=== PATIENT | male | born 1950 | race Caucasian/White ===

== ENCOUNTER 2017-12-24 11:23 | Emergency (ER) | payer MEDICARE, OTHER ==
[2017-12-24 11:32] VITALS: BP 132/70
[2017-12-24] MEDS ORDERED: BUFFERED LIDOCAINE 10 ML SYRINGE SUBQ STA (12:15)
--- NOTE | 2017-12-24 12:16 | ED Physician Documentation ---
PD HPI UPPER EXT INJURY - Stated complaint Stated Complaint: L MIDDLE FINGER VS TABLE SAW - Chief complaint Chief Complaint: Laceration - History obtained from History obtained from: Patient - History of Present Illness Location: Left (Right-handed gentleman who is up-to-date on tetanus was working on a fence post at home with a table saw and cut his left middle finger just prior to arrival. No other injuries. Pain is modest.) Review of Systems Constitutional: reports: Reviewed and negative Nose: reports: Reviewed and negative Throat: reports: Reviewed and negative PD PAST MEDICAL HISTORY - Past Medical History Cardiovascular: Congestive heart failure, High cholesterol Neuro: Head injury, Seizure disorder Endocrine/Autoimmune: Type 2 diabetes GI: Hepatitis Musculoskeletal: Gout, Other Other Past Medical History: Auto immune disease - Past Surgical History General: Colonoscopy, EGD Ortho: Knee replacement, Rotator cuff repair, Carpal Tunnel surgery Cardiovascular: Pacemaker HEENT: Cataracts - Present Medications Home Medications: Ambulatory Orders Medication Instructions Recorded Confirmed Cephalexin [Keflex] 500 mg PO QID #28 capsule 12/24/17 Oxycodone HCl/Acetaminophen 1 - 2 tab PO Q4H PRN #10 tablet 12/24/17 [Percocet 5-325 mg Tablet] - Allergies Allergies/Adverse Reactions: Allergies Allergy/AdvReac Type Severity Reaction Status Date / Time No Known Drug Allergies Allergy Verified 12/24/17 11:29 - Social History Does the pt smoke?: No Smoking Status: Never smoker Does the pt drink ETOH?: No Does the pt have substance abuse?: No PD ED PE NORMAL - Vitals Vital signs reviewed: Yes - General General: Alert and oriented X 3, No acute distress - Extremities Extremities: Other (Left middle finger: On the ulnar side of the tip there is 1 cm laceration into the pulp with a little bit of tissue loss but not much. There is a little bit of nailbed injury and nail injury.) - Neuro Neuro: Alert and oriented X 3, Normal speech Results - Vitals Vitals: Vital Signs - 24 hr 12/24/17 11:25 Temperature 37.1 C Heart Rate 67 Respiratory 16 Rate Blood Pressure 132/70 H O2 Saturation 98 Oxygen O2 Source Room air - Rads (name of study) L 3rd finger Radiology: EMP read contemporaneously (There is a laceration of the tip of the third digit with underlying tuft defect and evidence of an inflammatory arthritis as well.) Procedures - Laceration (location) Left third finger Length in cm: 1.5 Wound type: Linear, Irregular Neurovascular status: Sensory intact, Motor intact Tendon involvement: Tendon intact Anesthesia: OTH (Digital block with buffered lidocaine) Wound Preparation: Other (Part of the nail had to be debrided and there was some undermining done.) Skin layer closure: Other (It was approximated as well as it could be with 4-0 nylon interrupted. There were some open areas because of the tissue defect.) Other: Tetanus UTD Complexity: Simple Departure - Departure Disposition: 01 Home, Self Care Clinical Impression: Laceration Open finger fracture Qualifiers: Encounter type: initial encounter Finger: middle finger Phalanx: distal Fracture alignment: nondisplaced Laterality: left Qualified Code(s): S62.663B - Nondisplaced fracture of distal phalanx of left middle finger, initial encounter for open fracture Condition: Good Record reviewed to determine appropriate education?: Yes Instructions: ED Fx Finger Open Prescriptions: Cephalexin [Keflex] 500 mg PO QID #28 capsule Oxycodone HCl/Acetaminophen [Percocet 5-325 mg Tablet] 1 - 2 tab PO Q4H PRN #10 tablet PRN Reason: Pain Comments: Follow-up with your primary care physician in a week for wound check and in 2 weeks for suture removal, return for increased pain, swelling, drainage, redness. Your blood pressure was elevated today on check into the emergency department. This does not mean that you have hypertension, it is a common phenomenon to come to the emergency department and have elevated blood pressure. I recommend that you see your primary care physician within the week to have it rechecked when you are feeling better. Do not drink or drive while taking narcotic pain medication. Note that many narcotic pain relievers also contain Tylenol/acetaminophen. Please ensure that your total dose of acetaminophen from all sources does not exceed 3 g (3000 mg) per day. You may get constipated while on this medication. Take a stool softener such as Colace twice a day while you are on it. Also add an [id number] laxative such as senna or MiraLAX on any day that you do not have a bowel movement. If you received a narcotic pain medication or sedative while in the emergency department, do not drive for the next 24 hours.
--- NOTE | 2017-12-24 12:49 | XRAY Report ---
EXAM: LEFT THIRD DIGIT RADIOGRAPHY EXAM DATE: 12/24/2017 12:32 PM. CLINICAL HISTORY: Finger inj. COMPARISON: None. TECHNIQUE: 3 views. FINDINGS: Bones: There is a linear bony defect through the tuft of the third digit. There are 2 subcortical cys ts in the scaphoid which are thought to be degenerative. Joints: There is a periarticular erosion at the base of the proximal third phalanx. The ulnar styloid is unremarkable. Soft Tissues: Soft tissue irregularity at the tip of the third digit. IMPRESSION: 1. Laceration of the tip of the third digit with underlying bony defect of the tuft. 2. Periarticular erosion at the base of the proximal third phalanx which can be seen in the setting o f inflammatory arthritis such as rheumatoid arthritis. [facility] Referring Provider Line: [phone] SITE ID: [id number]
[2017-12-24] MEDS ORDERED: cephALEXin 250 MG CAPSULE PO STA (12:50)
== END 2017-12-24 13:21 | disposition home or self-care (01) ==
LOC: ED 11:23
DX: S62.663B Nondisplaced fracture of distal phalanx of left middle finger, initial encounter for open fracture (principal); E11.9 Type 2 diabetes mellitus without complications; R03.0 Elevated blood-pressure reading, without diagnosis of hypertension; W31.2XXA Contact with powered woodworking and forming machines, initial encounter; Y92.009 Unspecified place in unspecified non-institutional (private) residence as the place of occurrence of the external cause
CPT/HCPCS: 12001; 73140; 99283; A9270

== ENCOUNTER 2018-04-29 03:46 | Inpatient (IN) | payer MEDICARE, OTHER ==
[2018-04-29 04:15] LABS: BASOPHILS # (AUTO) 0.1 10^3/uL (0.0-0.1); EOSINOPHILS # (AUTO) 0.1 10^3/uL (0.0-0.7); LYMPHOCYTES # (AUTO) 2.1 10^3/uL (1.5-3.5); MEAN CORPUSCULAR VOLUME 81.1 fL (80.0-94.0); MONOCYTES # (AUTO) 1.5 10^3/uL (0.0-1.0); MONOCYTES % (AUTO) 19.9 %; NEUTROPHILS # (AUTO) 3.8 10^3/uL (1.5-6.6)
[2018-04-29 04:16] LABS: BILIRUBIN,URINE NEGATIVE (NEGATIVE); GLUCOSE, URINE (UA) NEGATIVE (NEGATIVE); KETONES,URINE (UA) NEGATIVE (NEGATIVE); LEUKOCYTE ESTERASE, URINE TRACE (NEGATIVE); NITRITE,URINE NEGATIVE (NEGATIVE); OCCULT BLOOD,URINE TRACE-LYSE (NEGATIVE); PH,URINE 5.5 PH (5.0-7.5); PROTEIN,URINE 100 mg/dL (NEGATIVE); UROBILINOGEN,URINE 0.2 (NORMAL) E.U./dL (NORMAL)
[2018-04-29 04:17] LABS: BASOPHILS % (AUTO) 0.7 %; EOSINOPHILS % (AUTO) 1.3 %; LYMPHOCYTES % (AUTO) 28.2 %; MEAN CORPUSCULAR HEMOGLOBIN 27.6 pg (27.0-31.0); MEAN CORPUSCULAR HGB CONC 34.1 g/dL (32.0-36.0); MEAN PLATELET VOLUME 7.3 fL (7.4-11.4); NEUTROPHILS % (AUTO) 49.9 %; PLT - PLATELET COUNT 313 10^3/uL (130-450); RED BLOOD COUNT 4.33 10^6/uL (4.70-6.10); RED CELL DISTRIBUTION WIDTH 15.3 % (12.0-15.0); WHITE BLOOD COUNT 7.5 x10^3/uL (4.8-10.8)
[2018-04-29 04:17] LABS: CLARITY,URINE CLEAR (CLEAR)
[2018-04-29 04:22] LABS: RBC,URINE 0-5 /HPF (0-5)
[2018-04-29 04:23] LABS: BACTERIA,URINE Rare /HPF (None Seen); MUCUS,URINE Marked Strands; SQUAMOUS EPITHELIAL CELL,UR FEW Squamous (<= Few)
[2018-04-29 04:28] LABS: ALBUMIN 3.5 g/dL (3.2-5.5); ALBUMIN/GLOBULIN RATIO 0.7 (1.0-2.2); BILIRUBIN,TOTAL 0.4 mg/dL (0.2-1.0); CALCIUM 8.8 mg/dL (8.5-10.3); CREATININE 1.1 mg/dL (0.6-1.2); TOTAL PROTEIN 8.3 g/dL (6.7-8.2)
[2018-04-29] MEDS ORDERED: KETOROLAC 60 MG/2 ML VIAL IVP STA (04:28)
[2018-04-29] MEDS ORDERED: ONDANSETRON 4 MG/2 ML VIAL IVP STA ×2 (04:28→05:32)
[2018-04-29] MEDS ORDERED: SODIUM CHLORIDE 0.9% 1,000 ML IV ONE (04:28)
[2018-04-29] MEDS ORDERED: IOPAMIDOL-300 100 ML VIAL ONE (04:33)
--- NOTE | 2018-04-29 04:41 | ED Physician Documentation ---
PD HPI ABD PAIN - Stated complaint Stated Complaint: ABD PX - Chief complaint Chief Complaint: Abd Pain - History obtained from History obtained from: Patient - Additional information Additional information: 67-year-old male presents the emergency department with 3 weeks of increasing lower abdominal pain. The patient has a history of diverticulitis and was started on antibiotics empirically by his primary care. The patient reports lower abdominal pain mostly suprapubic but is also experienced left-sided abdominal pain. The patient denies fevers or chills. The patient reports dysuria. The patient denies any vomiting. The patient denies blood in the stools. Symptoms are described as moderate. No specific triggering factors. No relieving factors. No other associated symptoms Review of Systems Constitutional: reports: Fatigue. denies: Fever Eyes: denies: Discharge Ears: denies: Ear pain Nose: denies: Congestion Throat: denies: Sore throat Cardiac: denies: Chest pain / pressure Respiratory: denies: Dyspnea GI: reports: Abdominal Pain : denies: Dysuria Skin: denies: Rash Musculoskeletal: denies: Neck pain Neurologic: denies: Generalized weakness Psychiatric: denies: Hallucinations Immunocompromised: reports: Immunocompromised PD PAST MEDICAL HISTORY - Past Medical History Cardiovascular: Congestive heart failure, High cholesterol Neuro: Head injury, Seizure disorder Endocrine/Autoimmune: Type 2 diabetes GI: Hepatitis Musculoskeletal: Gout, Other - Past Surgical History General: Colonoscopy, EGD Ortho: Knee replacement, Rotator cuff repair, Carpal Tunnel surgery Cardiovascular: Pacemaker, AICD HEENT: Cataracts - Present Medications Home Medications: Ambulatory Orders Medication Instructions Recorded Confirmed Aspirin 81 mg PO 04/29/18 Carvedilol [Coreg] 04/29/18 Ciprofloxacin HCl [Cipro] 500 mg PO 04/29/18 Lisinopril 20 mg PO 04/29/18 Methotrexate 2.5 mg PO DAILY 04/29/18 Metronidazole [Flagyl] 500 mg PO 04/29/18 Rosuvastatin Calcium 10 mg PO 04/29/18 04/29/18 Sitagliptin Phosphate [Januvia] 50 mg PO 04/29/18 metFORMIN [Glucophage] 500 mg PO ONCE 04/29/18 - Allergies Allergies/Adverse Reactions: Allergies Allergy/AdvReac Type Severity Reaction Status Date / Time No Known Drug Allergies Allergy Verified 04/29/18 03:57 - Social History Does the pt smoke?: No Smoking Status: Never smoker Does the pt drink ETOH?: No Does the pt have substance abuse?: No - Immunizations Immunizations are current?: Yes PD ED PE NORMAL - General General: Alert and oriented X 3. No: No acute distress (The patient appears quite uncomfortable) - HEENT HEENT: Atraumatic, PERRL, EOMI, Ears normal - Cardiac Cardiac: RRR, Strong equal pulses - Respiratory Respiratory: No respiratory distress, Clear bilaterally - Abdomen Abdomen: Soft, Non distended. No: Non tender (The patient has tenderness to palpation in the lower abdomen, there is no rebound or peritoneal signs) - Back Back: No CVA TTP - Derm Derm: Normal color, No rash - Extremities Extremities: No deformity, No edema - Neuro Neuro: Alert and oriented X 3, Normal speech - Psych Psych: Normal affect Results - Vitals Vitals: Vital Signs - 24 hr 04/29/18 04/29/18 03:52 05:56 Temperature 36.9 C Heart Rate 78 68 Respiratory 18 18 Rate Blood Pressure 148/90 H 123/79 O2 Saturation 99 100 Oxygen O2 Source Room air - Labs Labs: Laboratory Tests 04/29/18 04/29/18 04/29/18 04:00 04:05 04:05 WBC 7.5 RBC 4.33 L Hgb 12.0 L Hct 35.1 L MCV 81.1 MCH 27.6 MCHC 34.1 RDW 15.3 H Plt Count 313 MPV 7.3 L Neut # (Auto) 3.8 Lymph # (Auto) 2.1 [place] # (Auto) 1.5 H Eos # (Auto) 0.1 Baso # (Auto) 0.1 Absolute Nucleated RBC 0.00 Nucleated RBC % 0.0 Sodium 134 L Potassium 4.0 Chloride 104 Carbon Dioxide 22 Anion Gap 8.0 BUN 20 Creatinine 1.1 Estimated GFR (MDRD) 67 L Glucose 181 H Calcium 8.8 Total Bilirubin 0.4 AST 16 ALT 14 Alkaline Phosphatase 70 Total Protein 8.3 H Albumin 3.5 Globulin 4.8 H Albumin/Globulin Ratio 0.7 L Lipase 27 Urine Color YELLOW Urine Clarity CLEAR Urine pH 5.5 Ur Specific Lloyd >=1.030 H Urine Protein 100 H Urine Glucose (UA) NEGATIVE Urine Ketones NEGATIVE Urine Occult Blood TRACE-LYSE Urine Nitrite NEGATIVE Urine Bilirubin NEGATIVE Urine Urobilinogen 0.2 (NORMAL) Ur Leukocyte Esterase TRACE H Urine RBC 0-5 Urine WBC 4-5 Ur Squamous Epith Cells FEW Squamous Urine Bacteria Rare Urine Mucus Marked Strands Ur Microscopic Review INDICATED Urine Culture Comments INDICATED - Rads (name of study) CT abd/pelvis Radiology: Final report received (1. Sigmoid diverticulitis with developing abscess or fistula extending from the sigmoid colon to the dome of the urinary bladder, measuring about 3.9 x 1.8 cm. ) PD MEDICAL DECISION MAKING - ED course ED course: The case was discussed with the on-call general surgeon Dr. Garcia who will consult on the patient The case was discussed with the hospitalist Dr. Aguila who accepts the patient onto her service The findings and plan were discussed with the patient who understands and agrees to plan - Sepsis Event Vital Signs: Vital Signs - 24 hr 04/29/18 04/29/18 03:52 05:56 Temperature 36.9 C Heart Rate 78 68 Respiratory 18 18 Rate Blood Pressure 148/90 H 123/79 O2 Saturation 99 100 Oxygen O2 Source Room air Departure - Departure Disposition: 66 [facility] DC/Xfer Clinical Impression: Diverticulitis, Failure of outpatient treatment Condition: Fair
[2018-04-29] MEDS ORDERED: IOPAMIDOL-300 100 ML VIAL IVP ONE (04:57)
[2018-04-29] MEDS ORDERED: PIPERACILLIN/TAZOBACTAM 4.5 GM in SODIUM CHLORIDE 0.9% MINIBAG 100 ML IV STA (05:32)
--- NOTE | 2018-04-29 05:33 | CT Report ---
Reason: lower pain Procedure Date: 04/29/2018 Accession Number: [id number] / [id number] Procedure: CT - Abdomen/Pelvis W/ CPT Code: FULL RESULT: EXAM: CT ABDOMEN AND PELVIS EXAM DATE: 04/29/2018 05:12 AM. CLINICAL HISTORY: Lower abdominal pain. COMPARISONS: None. TECHNIQUE: Routine helical CT imaging was performed through the abdomen and pelvis. IV contrast: ISOVUE 300 100mL. Enteric contrast: No. Reconstructions: Coronal and sagittal. In accordance with CT protocol optimization, one or more of the following dose reduction techniques were utilized for this exam: automated exposure control, adjustment of mA and/or KV based on patient size, or use of iterative reconstructive technique. FINDINGS: Lung Bases: Unremarkable. Liver: Fatty infiltration. Gallbladder/Bile Ducts: Unremarkable. Spleen: Normal. Pancreas: Normal. Adrenal Glands: Normal. Kidneys: Small right renal cyst. No masses or hydronephrosis. Peritoneal Cavity/Bowel: Moderate stool in the colon, right greater than left. Colonic diverticula. Sigmoid diverticulitis. Diverticular abscess or fistula measuring about 3.9 x 1.8 cm extending to the left side of the bladder dome. Bladder wall thickening. No bowel obstruction seen. No lymphadenopathy. Appendix appears normal. Pelvic Organs: As noted above, urinary bladder wall thickening secondary to contiguous diverticular abscess. Vasculature: Moderate atherosclerosis. No aortic aneurysm. Bones: Degenerative changes in the spine. Spinal stenosis. Degenerative joint disease in the hips. Other: Small umbilical hernia containing fat. IMPRESSION: 1. Sigmoid diverticulitis with developing abscess or fistula extending from the sigmoid colon to the dome of the urinary bladder, measuring about 3.9 x 1.8 cm. [facility] The above findings were discussed with Torrey Albright by Dr. Davonte Morales at 05:29 Hrs on 04/29/18.
[2018-04-29] MEDS ORDERED: HYDROmorphone 1 MG/ML CARPUJECT IVP STA (05:39)
[2018-04-29] MEDS ORDERED: oxyCODONE 5 MG TABLET PO PRN (06:03)
[2018-04-29] MEDS ORDERED: ACETAMINOPHEN 325 MG TABLET PO PRN (06:03)
[2018-04-29] MEDS ORDERED: HYDROmorphone 1 MG/ML CARPUJECT IVP PRN (06:03)
[2018-04-29] MEDS ORDERED: ONDANSETRON ODT 4 MG TABLET TL PRN (06:03)
[2018-04-29] MEDS ORDERED: ONDANSETRON 4 MG/2 ML VIAL IVP PRN (06:03)
[2018-04-29] MEDS: PIPERACILLIN/TAZOBACTAM 3.375 GM in SODIUM CHLORIDE 0.9% MINIBAG 100 ML IV SCH ×3 (06:51→18:52)
[2018-04-29] MEDS ORDERED: SODIUM CHLORIDE 0.9% 1,000 ML IV SCH ×2 (07:00→11:54)
[2018-04-29] MEDS: ENOXAPARIN 40 MG/0.4 ML SYRINGE SUBQ SCH (08:47)
[2018-04-29] MEDS: SODIUM CHLORIDE FLUSH 0.9% 10 ML SYRINGE IVP SCH ×2 (09:06→16:58)
--- NOTE | 2018-04-29 09:22 | HISTORY & PHYSICAL EXAMINATION ---
Chief Complaint - Chief Complaint Chief Complaint: lower quandrant abdominal pain History of Present Illness - History of Present Illness HPI Comment/Other: Mr. Moran is 67-yrs-old male with a PMH significance for DM2, CHF, HDL, hx of Seizure, Hepatitis, surgical hx of pacemaker and AICD, who present ER complaints of lower quadrant abdominal pain. Pt report he became lower abdominal quadrant pain three weeks ago, never went away. In This week Tuesday, he became severe lower quadrant pain with nausea and vomiting. In Tuesday he went to visit his PCP. His PCP started antibiotics to him on cipro/metronidazoleto. He did take medication but the symptoms did not became better, even worsening per pt reports. He also report chill without fever at home. He has a hx of diverticulitis approximately 6 yrs ago. Pt report he had urinary burning sensation as well. He denies chest pain, shortness of breath, cough, headache, vision change. abd/pelvic CT scan in ER showed acute sigmoid diverticulitis with a pericolonic abscess measuring 1.7 x 3.9 cm interposed between the sigmoid colon and the dome of the urinary bladder. WBC is in the normal arrange. Pt is afebrile and hemodynamic stable in ER. Surgeon was consulted. History - Past Medical History Cardiovascular: reports: Congestive heart failure, High cholesterol Respiratory: reports: None Neuro: reports: Head injury, Seizure disorder Endocrine/Autoimmune: reports: Type 2 diabetes GI: reports: Hepatitis : reports: None HEENT: reports: None Musculoskeletal: reports: Gout, Other Derm: reports: None - Past Surgical History General: reports: Colonoscopy, EGD Ortho: reports: Knee replacement, Rotator cuff repair, Carpal Tunnel surgery Cardiovascular: reports: Pacemaker, AICD HEENT: reports: Cataracts Meds/Allgy - Home Medications Home Medications: Ambulatory Orders Medication Instructions Recorded Confirmed Aspirin 81 mg PO 04/29/18 Carvedilol [Coreg] 04/29/18 Ciprofloxacin HCl [Cipro] 500 mg PO 04/29/18 Lisinopril 20 mg PO 04/29/18 Methotrexate 2.5 mg PO DAILY 04/29/18 Metronidazole [Flagyl] 500 mg PO 04/29/18 Rosuvastatin Calcium 10 mg PO 04/29/18 04/29/18 Sitagliptin Phosphate [Januvia] 50 mg PO 04/29/18 metFORMIN [Glucophage] 500 mg PO ONCE 04/29/18 - Allergies Allergies/Adverse Reactions: Allergies Allergy/AdvReac Type Severity Reaction Status Date / Time No Known Drug Allergies Allergy Verified 04/29/18 03:57 Review of Systems - Constitutional Constitutional: reports: Chills. denies: Fatigue, Fever, Malaise, Weakness, Poor appetite, Diaphoresis, Night sweats - Eyes Eyes: denies: Pain, Irritation, Amaurosis, Blurred vision, Spots in vision, Field loss, Vision loss, Dipolpia - Ears, Nose & Throat Ears, Nose & Throat: denies: Ear pain, Hearing loss, Hearing aids, Tinnitus, Vertigo, Nasal pain, Nasal discharge, Nosebleeds, Nasal obstruction, Nasal congestion, Postnasal drainage, Dentures, Hoarseness, Mouth lesions, Bleeding gums - Cardiovascular Cariovascular: denies: Irregular heart rate, Palpitations, Chest pain, Edema, Lightheadedness, Syncope, Exertional dyspnea, Decr. exercise tolerance - Respiratory Respiratory: denies: Cough, Sputum production, Wheezing, Snoring, Hemoptysis, Orthopnea, SOB at rest, SOB with exertion - Gastrointestinal Gastrointestinal: reports: Abdominal pain, Nausea, Vomiting. denies: Abdominal distention, Constipation, Diarrhea, Change in bowel habits, Rectal bleeding, Black stools, Bloody stools, Bile emesis, Gualberto blood emesis, Coffee grounds emesis, Reflux/heartburn, Bloating, Poor appetite - Genitourinary Genitourinary: reports: Dysuria. denies: Frequency, Urgency, Hematuria, Incontinence, Flank pain, Nocturia, Urethral discharge - Musculoskeletal Musculoskeletal: denies: Muscle pain, Back pain, Muscle aches, Stiffness, Limited range of motion, Muscle weakness, Gout, Joint pain - Integumentary Integumentary: denies: Rash, Pruritis, Lesions, Dryness, Lumps, Acne, Pigment changes, Nail changes - Neurological Neurological: denies: General weakness, Focal weakness, Headache, Dizziness, Numbness, Memory problems, Pre-existing deficit, Abnormal gait, Seizures, Incoo rdination, Slurred speech - Psychiatric Psychiatric: denies: Depression, Anxiety, Suicidal, Delusions, Hallucinations, Homicidal - Endocrine Endocrine: denies: Polyuria, Polydypsia, Polyphagia, Intolerance to cold - Hematologic/Lymphatic Hematologic/Lymphatic: denies: Anemia, Bruising, Petechiae, Blood clots, Lymphadenopathy, Bleeding tendencies Exam - Vital Signs Reviewed Vital Signs: Yes Vital Signs: Vital Signs x48h Temp Pulse Pulse Resp BP BP Pulse Ox 04/29/18 07:29 36.7 C 62 19 132/83 H 96 04/29/18 06:46 36.5 C 60 16 128/67 97 04/29/18 05:56 68 18 123/79 100 04/29/18 03:52 36.9 C 78 18 148/90 H 99 - Physical Exam General Appearance: positive: No acute distress, Alert. negative: Lethargic Eyes Bilateral: positive: Normal inspection, PERRL, No lid inflammation, Conjunctivae nml ENT: positive: ENT inspection nml, Pharynx nml, No signs of dehydration. negative: Purulent nasal drainage, Pharyngeal erythema, Oral lesions Neck: positive: Nml inspection, Thyroid nml, No JVD, Trachea midline. negative: Thyromegaly, Lymphadenopathy (R), Lymphadenopathy (L), Stiff neck, Swelling/bruising, Tracheal deviation Respiratory: positive: Chest non-tender, No respiratory distress, Breath sounds nml. negative: Wheezes, Rales, Rhonchi Cardiovascular: positive: Regular rate & rhythm, No murmur, No gallop. negative: Irregularly irregular, Extrasystoles, Tachycardia, Bradycardia, JVD present, Systolic murmur, Diastolic murmur Peripheral Pulses: positive: 2+ Abdomen: positive: Non-tender, No organomegaly, Nml bowel sounds, No distention. negative: Tenderness, Guarding, Rebound Back: positive: Nml inspection. negative: CVA tenderness (R), CVA tenderness (L) Skin: positive: Color nml, No rash, Warm, Dry. negative: Cyanosis, Diaphoresis, Pallor Extremities: positive: Non-tender, Full ROM, Nml appearance. negative: Calf tenderness, Joint swelling, Jerome's sign/cords Neurologic/Psychiatric: positive: Oriented x3, Motor nml, Sensation nml, Mood/affect nml. negative: Weakness, Sensory loss, Facial droop, Slurred/abnml speech, Depressed mood/affect Conclusion/Plan - Problem List (1) Diverticulitis Conclusion/Plan: CT of abdomen reveals diverticulitis with abscess. consult with surgeon, follow up Zosyn blood culture, follow up gently IVF (2) DM2 (diabetes mellitus, type 2) Conclusion/Plan: hold metformin check A1C slide scale, ACHS hypoglycemia protocol (3) CHF (congestive heart failure) Conclusion/Plan: pt has pacemaker and AICD. pt denies any chest pain, SOB, cardiac distress. will check ECHO, have EKG on tele, vital monitor resume home Coreg, Lisinopril, statin, Aspirin (4) DVT prophylaxis Conclusion/Plan: SCD and Lovenox (5) Full code status Conclusion/Plan: full code - Lab Results Fish Bones: 04/29/18 04:05 04/29/18 04:05 Core Measures - Anticipated LOS I expect patient to be DC'd or transferred within 96 hours.: Yes - DVT/VTE - Prophylaxis VTE/DVT Device ordered at admit?: Yes VTE/DVT Prophylaxis med ordered at admit?: Yes
[2018-04-29] MEDS: POLYETHYLENE GLYCOL 3350 17 GM PACKET PO SCH (10:28)
[2018-04-29 10:40] LABS: HB2 TOTAL 13.2 g/dL; HEMOGLOBIN A1C 0.53 g/dL; HEMOGLOBIN A1C % 5.8 % (4.6-6.2)
--- NOTE | 2018-04-29 10:50 | CONSULTATION NOTE ---
Referring Provider Name of Referring Provider:: Dr. Maria Consult Date: 04/29/18 Chief Complaint - Chief Complaint Chief Complaint: abd pain History of Present Illness - Admitted From Admitted From:: ER - History Obtained From Records Reviewed: yes History obtained from: pt and records Exam Limitations: none - History of Present Illness HPI Comment/Other: 67 yo male with a 3 week hx of LLQ and suprapubic pain, described as a constant dull aching pain that is exacerbated when he needs to move his bowels or urinate. There has been intermittent chills but no fever, no change in bowel habits which are passing nl appearing stools every 1-2 days. He has noted increase in urinary frequency and dysuria but no hematuria or pneumaturia. No melena or BRBPR. He reports a high pain tolerance so he didn't seek medical attention until 5 days ago when he saw his PCP who suspected diverticulitis and started him on cipro/metronidazole; he noted some improvement over the next several days only to note worsening sx thereafter culminating in an ER visit last night and admission. He noted a single episode of N/V/D after taking MOM 5 days ago and none since. No recent wt changes. He has a hx of diverticulitis diagnosed with a CT scan in [place], [place] approximately 6 yrs ago and treated as an outpt with resolution. Neg FH GI tumors, although both parents suffered from diverticulitis. He has a personal hx of colon polyps and his last colon was approximatelyt 2 yrs ago where 3 polyps were removed and 5 yr f/u rec. No prior abdominal surgery. He was evaluated in the ER with an abd/pelvic CT scan which showed changes c/w acute sigmoid diverticulitis with a pericolonic abscess measuring 1.7 x 3.9 cm interposed between the sigmoid colon and the dome of the urinary bladder. He was admitted for further evaluation and treatment. He reports that he feels better today with decreased discomfort, no N/V; is hungry. 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, currently in remission) GI: reports: Colon polyps (3 polyps removed at colonsocopy approx 2 yrs ago.), Hepatitis (thought to be A while in [place]) : reports: Nocturia, Frequency HEENT: reports: None Psych: reports: None Musculoskeletal: reports: Gout, Other Derm: reports: None MRSA Hx?: No - Past Surgical History General: reports: Colonoscopy, EGD Ortho: reports: Knee replacement, Rotator cuff repair, Carpal Tunnel surgery Cardiovascular: reports: Pacemaker, AICD HEENT: reports: Cataracts - Family & Social History Family History Comment/Other: neg for GI tumors; pos for diverticular disease in both parents Living arrangement: At home Living Situation: With spouse/s.o. - Substance History Use: Uses substance without health or social issues: NONE Abuse: Recurrent use of substance despite neg consequences: NONE Dependence: Experiences withdrawal or developed tolerances: NONE Meds/Allgy - Home Medications Home Medications: Ambulatory Orders Medication Instructions Recorded Confirmed Aspirin 81 mg PO 04/29/18 Carvedilol [Coreg] 04/29/18 Ciprofloxacin HCl [Cipro] 500 mg PO 04/29/18 Lisinopril 20 mg PO 04/29/18 Methotrexate 2.5 mg PO DAILY 04/29/18 Metronidazole [Flagyl] 500 mg PO 04/29/18 Rosuvastatin Calcium 10 mg PO 04/29/18 04/29/18 Sitagliptin Phosphate [Januvia] 50 mg PO 04/29/18 metFORMIN [Glucophage] 500 mg PO ONCE 04/29/18 - Allergies Allergies/Adverse Reactions: Allergies Allergy/AdvReac Type Severity Reaction Status Date / Time No Known Drug Allergies Allergy Verified 04/29/18 03:57 Review of Systems - Gastrointestinal Gastrointestinal: reports: Abdominal pain, Change in bowel habits (pain with bms). denies: Abdominal distention, Constipation, Diarrhea, Rectal bleeding, Black stools, Bloody stools, Nausea, Vomiting, Gualberto blood emesis, Coffee grounds emesis, Reflux/heartburn, Bloating, Poor appetite - Genitourinary Genitourinary: reports: Dysuria, Frequency, Urgency - Hematologic/Lymphatic Hematologic/Lymphatic: denies: Bruising, Blood clots, Bleeding tendencies - All Other Systems All Other Systems: reports: Reviewed and negative Exam - Vital Signs Reviewed Vital Signs: Yes Vital Signs: Vital Signs x48h Temp Pulse Pulse Resp BP BP Pulse Ox 04/29/18 07:29 36.7 C 62 19 132/83 H 96 04/29/18 06:46 36.5 C 60 16 128/67 97 04/29/18 05:56 68 18 123/79 100 04/29/18 03:52 36.9 C 78 18 148/90 H 99 - Physical Exam General Appearance: positive: No acute distress, Alert Eyes Bilateral: positive: Normal inspection, Conjunctivae nml, No scleral icterus ENT: positive: Dry mucous membranes Neck: positive: No JVD. negative: Thyromegaly, Lymphadenopathy (R), Lymphadenopathy (L) Respiratory: positive: Chest non-tender, No respiratory distress, Breath sounds nml. negative: Wheezes, Rales, Rhonchi Cardiovascular: positive: Regular rate & rhythm, No murmur, No gallop Abdomen: positive: Nml bowel sounds, No distention, Tenderness (LLQ/suprapubic tenderness without guarding/rebound or peritoneal signs), Other (obese). negative: Hepatomegaly, Splenomegaly, Mass Back: negative: CVA tenderness (R), CVA tenderness (L) Skin: positive: Color nml, Warm, Dry. negative: Cyanosis Extremities: positive: Non-tender, Nml appearance, No pedal edema. negative: Calf tenderness Neurologic/Psychiatric: positive: Oriented x3 Conclusion/Plan - Diagnosis Diagnosis: 1.Acute diverticulitis with small associated pericolonic abscess interposed between sigmoid colon and urinary bladder, concerning for but not diagnostic of, colo-vesical fistula. There are no signs of sepsis or generalized peritonitis at present. 2. Hx cardiomyopathy with details not currently available; current cardiac function should be assessed considering possible need for urgent surgery. - Plan Plan: Agree with admission, IV antibiotic therapy with pip/fela, observation. Would repeat CT in 2 days to reassess status of abscess. Would also obtain HbgA1c, ECG, and echocardiogram. If abscess enlarges and there is no evidence of a fis ross, would recommend attempt at percutaneous drainage. If an enlarging abscess is not amenable to percutaneous drainage and/or a fistula is demonstrated, then surgery would be indicated. Will follow. Thanks, - Lab Results Fish Bones: 04/29/18 04:05 04/29/18 04:05 Other Lab Results: UA: SG 1.030; 0-5 rbcs, 4-5 wbc, trace+ leuk esterase - Diagnostic Imaging Results Diagnostic Imaging Results: positive: Final report reviewed, Read independently Diagnostic Imaging Results Comments: See HPI
[2018-04-29] MEDS ORDERED: INSULIN REGULAR HUMAN 100 UNIT/1 ML 10 ML MDV SUBQ SCH (12:00)
[2018-04-29] MEDS: PHENAZOPYRIDINE 100 MG TABLET PO PRN ×2 (12:54→20:37)
[2018-04-29] MEDS: INSU100I18 SUBQ SCH ×2 (16:58→20:38)
[2018-04-29] MEDS ORDERED: TEMAZEPAM 7.5 MG CAPSULE PO PRN (20:04)
[2018-04-29] MEDS ORDERED: KETOROLAC 15 MG/ML VIAL IVP PRN (20:05)
[2018-04-29] MEDS: SODIUM CHLORIDE 0.9% 1,000 ML IV SCH (20:09)
[2018-04-29] MEDS: CARVEDILOL 12.5 MG TABLET PO SCH (20:37)
[2018-04-29] MEDS: ATORVASTATIN 10 MG TABLET PO SCH (20:37)
[2018-04-30] MEDS: SODIUM CHLORIDE FLUSH 0.9% 10 ML SYRINGE IVP SCH ×3 (01:06→19:23)
[2018-04-30] MEDS: PIPERACILLIN/TAZOBACTAM 3.375 GM in SODIUM CHLORIDE 0.9% MINIBAG 100 ML IV SCH ×4 (01:16→19:22)
[2018-04-30 06:12] LABS: BASOPHILS # (AUTO) 0.1 10^3/uL (0.0-0.1); BASOPHILS % (AUTO) 0.8 %; EOSINOPHILS # (AUTO) 0.1 10^3/uL (0.0-0.7); EOSINOPHILS % (AUTO) 1.3 %; HGB - HEMOGLOBIN 10.5 g/dL (14.0-18.0); LYMPHOCYTES # (AUTO) 1.5 10^3/uL (1.5-3.5); LYMPHOCYTES % (AUTO) 23.3 %; MEAN CORPUSCULAR HGB CONC 34.5 g/dL (32.0-36.0); MEAN CORPUSCULAR VOLUME 81.3 fL (80.0-94.0); MEAN PLATELET VOLUME 7.2 fL (7.4-11.4); MONOCYTES # (AUTO) 1.5 10^3/uL (0.0-1.0); NEUTROPHILS # (AUTO) 3.2 10^3/uL (1.5-6.6); NEUTROPHILS % (AUTO) 50.6 %; PLT - PLATELET COUNT 251 10^3/uL (130-450); RED BLOOD COUNT 3.74 10^6/uL (4.70-6.10); RED CELL DISTRIBUTION WIDTH 15.5 % (12.0-15.0); WHITE BLOOD COUNT 6.4 x10^3/uL (4.8-10.8)
[2018-04-30 06:19] LABS: CALCIUM 8.1 mg/dL (8.5-10.3)
[2018-04-30] MEDS: ASPIRIN CHEW 81 MG TABLET PO SCH (08:45)
[2018-04-30] MEDS: LISINOPRIL 20 MG TABLET PO SCH (08:45)
[2018-04-30] MEDS: CARVEDILOL 12.5 MG TABLET PO SCH ×2 (08:45→20:15)
[2018-04-30] MEDS: ENOXAPARIN 40 MG/0.4 ML SYRINGE SUBQ SCH (08:46)
[2018-04-30] MEDS: POLYETHYLENE GLYCOL 3350 17 GM PACKET PO SCH (08:46)
[2018-04-30] MEDS: INSU100I18 SUBQ SCH ×4 (08:47→20:16)
--- NOTE | 2018-04-30 10:01 | PROVIDER PROGRESS NOTE ---
Assessment/Plan - Problem List (1) Diverticulitis Assessment/Plan: Clinically improving with minimal discomfort, no N/V/F/C, tolerating full liq diet well. Rec: continue present therapy, advance diet and activity as tolerated; f/u CT in 5-7 days if continues to do well, or sooner prn. - Current Meds Current Meds: Current Medications Generic Name Dose Route Start Last Admin Trade Name Freq PRN Reason Stop Dose Admin Aspirin 81 mg 04/30/18 09:00 04/30/18 08:45 St Tobi Aspirin PO 81 mg DAILY ALY Administration Atorvastatin Calcium 20 mg 04/29/18 21:00 04/29/18 20:37 Lipitor PO 20 mg QPM ALY Administration Carvedilol 12.5 mg 04/29/18 21:00 04/30/18 08:45 Coreg PO 12.5 mg BID ALY Administration Enoxaparin Sodium 40 mg 04/29/18 09:00 04/30/18 08:46 Lovenox SUBQ Not Given DAILY ALY Piperacillin Sod/Tazobactam 100 mls @ 200 mls/hr 04/29/18 07:00 04/30/18 07:28 Sod 3.375 gm/ Sodium Chloride IV Infused Q6H ALY Infusion Sodium Chloride 1,000 mls @ 75 mls/hr 04/29/18 18:00 04/29/18 22:38 Normal Saline 0.9% IV 75 mls/hr .[id number] ALY Infusion Insulin Aspart 2 - 10 unit 04/29/18 17:00 04/30/18 08:47 Novolog SUBQ 2 unit 0800,1200,1700,2100 ALY Administration Protocol Lisinopril 20 mg 04/30/18 09:00 04/30/18 08:45 Zestril PO 20 mg DAILY ALY Administration Phenazopyridine HCl 100 mg 04/29/18 09:00 04/29/18 20:37 Pyridium PO 100 mg TID PRN Administration buring on urination Polyethylene Glycol 17 gm 04/29/18 09:00 04/30/18 08:46 Miralax PO Not Given DAILY ALY Sodium Chloride 10 ml 04/29/18 09:00 04/30/18 08:46 Normal Saline Flush 0.9% IVP Not Given 0100,0900,1700 ALY Temazepam 7.5 mg 04/29/18 20:04 04/29/18 22:03 Restoril PO 7.5 mg QPM PRN Administration Insomnia - Lab Result Lab results reviewed: Yes Fish Bone Diagrams: 04/30/18 05:40 04/30/18 05:40 - Additional Planning Condition/Complexity: Improved My Orders: My Active Orders 04/29/18 10:36 Echo Transthoracic Complete [ECHO] Routine 04/29/18 Lunch Full Liquid Diet [DIET] Plan Discussed with:: Patient, Case Management, Other ([place]) Time Spent: 15-30 minutes Subjective - Subjective Patient Reports: Feeling Better, Resting Comfortably, No Complaints (tolerating full liquid diet, voiding and moving bowels well.) Objective Vital Signs: Vital Signs - 24 hr 04/29/18 04/29/18 04/29/18 11:06 14:11 15:33 Temperature 36.7 C 36.7 C 36.9 C Heart Rate 62 Heart Rate [ 60 70 Radial] Respiratory 19 20 20 Rate Blood Pressure 138/77 H 100/77 [Left Brachial artery] O2 Saturation 96 94 99 04/29/18 04/29/18 04/30/18 19:17 23:28 05:35 Temperature 36.8 C 37.1 C 36.8 C Heart Rate Heart Rate [ 65 62 60 Radial] Respiratory 20 20 16 Rate Blood Pressure 143/76 H 118/62 135/66 H [Left Brachial artery] O2 Saturation 98 95 95 04/30/18 07:59 Temperature 36.9 C Heart Rate Heart Rate [ 60 Radial] Respiratory 17 Rate Blood Pressure 124/66 [Left Brachial artery] O2 Saturation 96 Oxygen O2 Source Room air I&O (Last 24 Hrs): Intake and Output Totals x24h 04/28/18 04/29/18 04/30/18 23:59 23:59 23:59 Intake Total 3818.28 700 Output Total 875 1050 Balance 2943.28 -350 General: Alert, Oriented x3, Cooperative, No acute distress Abdomen: No hepatospenomegaly, No masses, Other (mild suprapubic tenderness with guarding, ow benign abdomen) Extremities: No edema, No tenderness/swelling - Results Results: Laboratory Results WBC 6.4 x10^3/uL (4.8-10.8) 04/30/18 05:40 RBC 3.74 10^6/uL (4.70-6.10) L 04/30/18 05:40 Hgb 10.5 g/dL (14.0-18.0) L 04/30/18 05:40 Hct 30.4 % (42.0-52.0) L 04/30/18 05:40 MCV 81.3 fL (80.0-94.0) 04/30/18 05:40 MCH 28.0 pg (27.0-31.0) 04/30/18 05:40 MCHC 34.5 g/dL (32.0-36.0) 04/30/18 05:40 RDW 15.5 % (12.0-15.0) H 04/30/18 05:40 Plt Count 251 10^3/uL (130-450) 04/30/18 05:40 MPV 7.2 fL (7.4-11.4) L 04/30/18 05:40 Neut # (Auto) 3.2 10^3/uL (1.5-6.6) 04/30/18 05:40 Lymph # (Auto) 1.5 10^3/uL (1.5-3.5) 04/30/18 05:40 [place] # (Auto) 1.5 10^3/uL (0.0-1.0) H 04/30/18 05:40 Eos # (Auto) 0.1 10^3/uL (0.0-0.7) 04/30/18 05:40 Baso # (Auto) 0.1 10^3/uL (0.0-0.1) 04/30/18 05:40 Absolute Nucleated RBC 0.01 x10^3/uL 04/30/18 05:40 Nucleated RBC % 0.1 /100WBC 04/30/18 05:40 Sodium 137 mmol/L (135-145) 04/30/18 05:40 Potassium 4.1 mmol/L (3.5-5.0) 04/30/18 05:40 Chloride 108 mmol/L (101-111) 04/30/18 05:40 Carbon Dioxide 21 mmol/L (21-32) 04/30/18 05:40 Anion Gap 8.0 (6-13) 04/30/18 05:40 BUN 12 mg/dL (6-20) 04/30/18 05:40 Creatinine 1.0 mg/dL (0.6-1.2) 04/30/18 05:40 Estimated GFR (MDRD) 75 (>89) L 04/30/18 05:40 Glucose 139 mg/dL (70-100) H 04/30/18 05:40 POC Whole Bld Glucose 155 mg/dL (70 - 100) H 04/30/18 07:56 Glycated Hemoglobin 5.8 % (4.6-6.2) 04/29/18 03:55 Estim Average Glucose 120 (70-100) H 04/29/18 03:55 Lactic Acid 1.2 mmol/L (0.5-2.2) 04/29/18 06:12 Calcium 8.1 mg/dL (8.5-10.3) L 04/30/18 05:40 Total Bilirubin 0.4 mg/dL (0.2-1.0) 04/29/18 04:05 AST 16 IU/L (10-42) 04/29/18 04:05 ALT 14 IU/L (10-60) 04/29/18 04:05 Alkaline Phosphatase 70 IU/L (42-121) 04/29/18 04:05 Total Protein 8.3 g/dL (6.7-8.2) H 04/29/18 04:05 Albumin 3.5 g/dL (3.2-5.5) 04/29/18 04:05 Globulin 4.8 g/dL (2.1-4.2) H 04/29/18 04:05 Albumin/Globulin Ratio 0.7 (1.0-2.2) L 04/29/18 04:05 Lipase 27 U/L (22-51) 04/29/18 04:05 Urine Color YELLOW 04/29/18 04:00 Urine Clarity CLEAR (CLEAR) 04/29/18 04:00 Urine pH 5.5 PH (5.0-7.5) 04/29/18 04:00 Ur Specific Agness >=1.030 (1.002-1.030) H 04/29/18 04:00 Urine Protein 100 mg/dL (NEGATIVE) H 04/29/18 04:00 Urine Glucose (UA) NEGATIVE mg/dL (NEGATIVE) 04/29/18 04:00 Urine Ketones NEGATIVE mg/dL (NEGATIVE) 04/29/18 04:00 Urine Occult Blood TRACE-LYSE (NEGATIVE) 04/29/18 04:00 Urine Nitrite NEGATIVE (NEGATIVE) 04/29/18 04:00 Urine Bilirubin NEGATIVE (NEGATIVE) 04/29/18 04:00 Urine Urobilinogen 0.2 (NORMAL) E.U./dL (NORMAL) 04/29/18 04:00 Ur Leukocyte Esterase TRACE (NEGATIVE) H 04/29/18 04:00 Urine RBC 0-5 /HPF (0-5) 04/29/18 04:00 Urine WBC 4-5 /HPF (0-3) 04/29/18 04:00 Ur Squamous Epith Cells FEW Squamous (<= Few) 04/29/18 04:00 Urine Bacteria Rare /HPF (None Seen) 04/29/18 04:00 Urine Mucus Marked Strands 04/29/18 04:00 Ur Microscopic Review INDICATED 04/29/18 04:00 Urine Culture Comments INDICATED 04/29/18 04:00 ABX Reporting Has patient been on IV antibiotics over the past 48 hours?: No
[2018-04-30] MEDS: SODIUM CHLORIDE 0.9% 1,000 ML IV SCH (11:24)
--- NOTE | 2018-04-30 13:19 | PROVIDER PROGRESS NOTE ---
Subjective - Prog Note Date Prog Note Date: 04/30/18 - Subjective Pt reports feeling: Improved Subjective: pt state his abdominal pain is good controlled, much better than before, no N/V/D, pt tolerate the diet as well. No fever, chill, SOB, CP. Current Medications - Current Medications Current Medications: Active Medications Acetaminophen (Tylenol) 650 mg PO Q4HR PRN PRN Reason: Pain 1 to 4 Aspirin ([facility] Tobi Aspirin) 81 mg PO DAILY [facility] Last Admin: 04/30/18 08:45 Dose: 81 mg Atorvastatin Calcium (Lipitor) 20 mg PO QPM [facility] Last Admin: 04/29/18 20:37 Dose: 20 mg Carvedilol (Coreg) 12.5 mg PO BID [facility] Last Admin: 04/30/18 08:45 Dose: 12.5 mg Enoxaparin Sodium (Lovenox) 40 mg SUBQ DAILY [facility] Last Admin: 04/30/18 08:46 Dose: Not Given Hydromorphone HCl (Dilaudid Inj Carp) 1 mg IVP Q2HR PRN PRN Reason: Pain 8 to 10 Piperacillin Sod/Tazobactam (Sod 3.375 gm/ Sodium Chloride) 100 mls @ 200 mls/hr IV Q6H [facility] Last Infusion: 04/30/18 07:28 Dose: Infused Sodium Chloride (Normal Saline 0.9%) 1,000 mls @ 75 mls/hr IV .[id number] [facility] Last Admin: 04/30/18 11:24 Dose: 75 mls/hr Insulin Aspart (Novolog) 2 - 10 unit SUBQ 0800,1200,1700,2100 [facility]; Protocol Last Admin: 04/30/18 12:18 Dose: 2 unit Ketorolac Tromethamine (Toradol Inj (15mg)) 15 mg IVP Q6HR PRN PRN Reason: PAIN Stop: 05/04/18 20:04 Lisinopril (Zestril) 20 mg PO DAILY [facility] Last Admin: 04/30/18 08:45 Dose: 20 mg Ondansetron HCl (Zofran Inj) 4 mg IVP Q6HR PRN PRN Reason: Nausea / Vomiting Ondansetron HCl (Zofran Odt) 4 mg TL Q6HR PRN PRN Reason: Nausea / Vomiting Oxycodone HCl (Roxicodone) 5 mg PO Q4HR PRN PRN Reason: Pain 5 to 7 Phenazopyridine HCl (Pyridium) 100 mg PO TID PRN PRN Reason: buring on urination Last Admin: 04/29/18 20:37 Dose: 100 mg Polyethylene Glycol (Miralax) 17 gm PO DAILY [facility] Last Admin: 04/30/18 08:46 Dose: Not Given Sodium Chloride (Normal Saline Flush 0.9%) 10 ml IVP PRN PRN PRN Reason: NEEDED PER PROVIDER ORDERS Sodium Chloride (Normal Saline Flush 0.9%) 10 ml IVP 0100,0900,1700 [facility] Last Admin: 04/30/18 08:46 Dose: Not Given Temazepam (Restoril) 7.5 mg PO QPM PRN PRN Reason: Insomnia Last Admin: 04/29/18 22:03 Dose: 7.5 mg Aspirin 81 mg PO DAILY 04/29/18 Carvedilol [Coreg] 12.5 mg PO BID 04/29/18 Lisinopril 20 mg PO DAILY 04/29/18 Methotrexate 20 mg PO MO 04/29/18 Rosuvastatin Calcium 10 mg PO DAILY 04/29/18 Sitagliptin Phosphate [Januvia] 50 mg PO DAILY 04/29/18 Sour Ramires Extract [Tart Ramires Extract] 1,000 mg PO DAILY 04/29/18 Ubidecarenone [Co Q-10] 300 mg PO DAILY 04/29/18 metFORMIN [Glucophage] 500 mg PO BID 04/29/18 Objective - Vital Signs/Intake & Output Reviewed Vital Signs: Yes Vital Signs: Vital Signs x48h Temp Pulse Resp BP Pulse Ox 04/30/18 07:59 36.9 C 60 17 124/66 96 04/30/18 05:35 36.8 C 60 16 135/66 H 95 Intake & Output: Intake & Output 04/27/18 04/28/18 04/29/18 04/30/18 23:59 23:59 23:59 23:59 Intake Total 3818.28 1838.75 Output Total 875 1050 Balance 2943.28 788.75 - Objective General Appearance: positive: No acute distress, Alert. negative: Lethargic Eyes Bilateral: positive: Normal inspection, PERRL, No lid inflammation, Conjunctivae nml ENT: positive: ENT inspection nml, Pharynx nml, No signs of dehydration. negative: Purulent nasal drainage, Pharyngeal erythema, Oral lesions Neck: positive: Nml inspection, Thyroid nml, No JVD, Trachea midline. negative: Thyromegaly, Lymphadenopathy (R), Lymphadenopathy (L), Stiff neck, Swelling/bruising, Tracheal deviation Respiratory: positive: Chest non-tender, No respiratory distress, Breath sounds nml. negative: Wheezes, Rales, Rhonchi Cardiovascular: positive: Regular rate & rhythm, No murmur, No gallop. negative: Irregularly irregular, Extrasystoles, Tachycardia, Bradycardia, JVD present, Systolic murmur, Diastolic murmur Peripheral Pulses: 2+ Radial (R), 2+ Radial (L), 2+ Dorsalis pedis (R), 2+ Dorsalis pedis (L) Abdomen: positive: Non-tender, No organomegaly, Nml bowel sounds, No distention. negative: Tenderness, Guarding, Rebound Back: positive: Nml inspection. negative: CVA tenderness (R), CVA tenderness (L) Skin: positive: Color nml, No rash, Warm, Dry. negative: Cyanosis, Diaphoresis, Pallor Extremities: positive: Non-tender, Full ROM, Nml appearance. negative: Calf tenderness, Joint swelling, Jerome's sign/cords Neurologic/Psychiatric: positive: Oriented x3, Motor nml, Sensation nml, Mood/affect nml. negative: Weakness, Sensory loss, Facial droop, Slurred/abnml speech, Depressed mood/affect - Lab Results Fish Bones: 04/30/18 05:40 04/30/18 05:40 Other Labs: Lab Results x24hrs 04/30/18 04/30/18 04/30/18 Range/Units 11:38 07:56 05:40 WBC (4.8-10.8) x10^3/uL RBC (4.70-6.10) 10^6/uL Hgb (14.0-18.0) g/dL Hct (42.0-52.0) % MCV (80.0-94.0) fL MCH (27.0-31.0) pg MCHC (32.0-36.0) g/dL RDW (12.0-15.0) % Plt Count (130-450) 10^3/uL MPV (7.4-11.4) fL Neut # (Auto) (1.5-6.6) 10^3/uL Lymph # (Auto) (1.5-3.5) 10^3/uL [place] # (Auto) (0.0-1.0) 10^3/uL Eos # (Auto) (0.0-0.7) 10^3/uL Baso # (Auto) (0.0-0.1) 10^3/uL Absolute Nucleated RBC x10^3/uL Nucleated RBC % /100WBC Sodium 137 (135-145) mmol/L Potassium 4.1 (3.5-5.0) mmol/L Chloride 108 (101-111) mmol/L Carbon Dioxide 21 (21-32) mmol/L Anion Gap 8.0 (6-13) BUN 12 (6-20) mg/dL Creatinine 1.0 (0.6-1.2) mg/dL Estimated GFR (MDRD) 75 L (>89) Glucose 139 H (70-100) mg/dL POC Whole Bld Glucose 159 H 155 H (70 - 100) mg/dL Calcium 8.1 L (8.5-10.3) mg/dL 04/30/18 04/29/18 04/29/18 Range/Units 05:40 20:34 16:30 WBC 6.4 (4.8-10.8) x10^3/uL RBC 3.74 L (4.70-6.10) 10^6/uL Hgb 10.5 L (14.0-18.0) g/dL Hct 30.4 L (42.0-52.0) % MCV 81.3 (80.0-94.0) fL MCH 28.0 (27.0-31.0) pg MCHC 34.5 (32.0-36.0) g/dL RDW 15.5 H (12.0-15.0) % Plt Count 251 (130-450) 10^3/uL MPV 7.2 L (7.4-11.4) fL Neut # (Auto) 3.2 (1.5-6.6) 10^3/uL Lymph # (Auto) 1.5 (1.5-3.5) 10^3/uL [place] # (Auto) 1.5 H (0.0-1.0) 10^3/uL Eos # (Auto) 0.1 (0.0-0.7) 10^3/uL Baso # (Auto) 0.1 (0.0-0.1) 10^3/uL Absolute Nucleated RBC 0.01 x10^3/uL Nucleated RBC % 0.1 /100WBC Sodium (135-145) mmol/L Potassium (3.5-5.0) mmol/L Chloride (101-111) mmol/L Carbon Dioxide (21-32) mmol/L Anion Gap (6-13) BUN (6-20) mg/dL Creatinine (0.6-1.2) mg/dL Estimated GFR (MDRD) (>89) Glucose (70-100) mg/dL POC Whole Bld Glucose 128 H 141 H (70 - 100) mg/dL Calcium (8.5-10.3) mg/dL ABX Reporting Has patient been on IV antibiotics over the past 48 hours?: Yes Assessment/Plan - Problem List (1) Diverticulitis Impression: Conclusion/Plan: 04/30 clinic pt had a great improvement, abdominal pain is good controlled, pt tolerate the diet, no N/V/D, no fever, chill, WBC is normal order PICC line per surgeon Dr. Zach Garcia recommend, pt may be d/c with IV of antibiotics, then image study in one week, community case manager set for home infusion. CT of abdomen reveals diverticulitis with abscess. consult with surgeon, follow up Zosyn blood culture, follow up gently IVF (2) DM2 (diabetes mellitus, type 2) Conclusion/Plan: glucose controlled, continue slide scale hold metformin check A1C slide scale, ACHS hypoglycemia protocol (3) CHF (congestive heart failure) Conclusion/Plan: 04/30 ECHO reveals EF 30%, combination of systolic and diastolic hold IVF continue home meds continue Tele, vital monitor pt has pacemaker and AICD. pt denies any chest pain, SOB, cardiac distress. will check ECHO, have EKG on tele, vital monitor resume home Coreg, Lisinopril, statin, Aspirin
[2018-04-30] MEDS: TAMSULOSIN 0.4 MG CAPSULE PO SCH (18:50)
[2018-04-30] MEDS: PHENAZOPYRIDINE 100 MG TABLET PO PRN (19:23)
[2018-04-30] MEDS: SODIUM CHLORIDE FLUSH 0.9% 10 ML SYRINGE IVP PRN (19:23)
[2018-04-30] MEDS: ATORVASTATIN 10 MG TABLET PO SCH (20:15)
[2018-05-01] MEDS: SODIUM CHLORIDE FLUSH 0.9% 10 ML SYRINGE IVP SCH ×4 (01:05→23:25)
[2018-05-01] MEDS: PIPERACILLIN/TAZOBACTAM 3.375 GM in SODIUM CHLORIDE 0.9% MINIBAG 100 ML IV SCH ×4 (01:05→19:20)
[2018-05-01 05:32] LABS: BASOPHILS % (AUTO) 0.5 %; EOSINOPHILS # (AUTO) 0.1 10^3/uL (0.0-0.7); EOSINOPHILS % (AUTO) 0.9 %; HGB - HEMOGLOBIN 11.6 g/dL (14.0-18.0); LYMPHOCYTES # (AUTO) 2.3 10^3/uL (1.5-3.5); LYMPHOCYTES % (AUTO) 23.6 %; MEAN CORPUSCULAR HEMOGLOBIN 27.5 pg (27.0-31.0); MEAN CORPUSCULAR HGB CONC 33.9 g/dL (32.0-36.0); MEAN CORPUSCULAR VOLUME 81.1 fL (80.0-94.0); MEAN PLATELET VOLUME 7.3 fL (7.4-11.4); MONOCYTES # (AUTO) 2.5 10^3/uL (0.0-1.0); MONOCYTES % (AUTO) 24.9 %; NEUTROPHILS # (AUTO) 4.9 10^3/uL (1.5-6.6); NEUTROPHILS % (AUTO) 50.1 %; PLT - PLATELET COUNT 274 10^3/uL (130-450); RED BLOOD COUNT 4.21 10^6/uL (4.70-6.10); RED CELL DISTRIBUTION WIDTH 15.2 % (12.0-15.0); WHITE BLOOD COUNT 9.9 x10^3/uL (4.8-10.8)
[2018-05-01 05:45] LABS: CALCIUM 8.6 mg/dL (8.5-10.3); CREATININE 1.1 mg/dL (0.6-1.2)
[2018-05-01] MEDS: INSU100I18 SUBQ SCH ×4 (08:22→21:02)
[2018-05-01] MEDS: TAMSULOSIN 0.4 MG CAPSULE PO SCH (08:36)
[2018-05-01] MEDS: ASPIRIN CHEW 81 MG TABLET PO SCH (08:36)
[2018-05-01] MEDS: CARVEDILOL 12.5 MG TABLET PO SCH ×2 (08:36→21:02)
[2018-05-01] MEDS: ENOXAPARIN 40 MG/0.4 ML SYRINGE SUBQ SCH (08:36)
[2018-05-01] MEDS: POLYETHYLENE GLYCOL 3350 17 GM PACKET PO SCH (08:36)
[2018-05-01] MEDS: LISINOPRIL 20 MG TABLET PO SCH (08:36)
--- NOTE | 2018-05-01 10:42 | XRAY Report ---
Reason: PICC line placement Procedure Date: 05/01/2018 Accession Number: [id number] / [id number] Procedure: XR - Chest 1 View X-Ray CPT Code: 29701 FULL RESULT: EXAM: CHEST RADIOGRAPHY EXAM DATE: 05/01/2018 10:23 AM. CLINICAL HISTORY: PICC line placement. COMPARISON: None. TECHNIQUE: 1 view. 2 images are provided. FINDINGS: Lungs/Pleura: No focal consolidation. No pneumothorax or large pleural effusion. Mediastinum: Mild enlargement of the cardiac silhouette. Other: Right upper extremity PICC tip is in the mid to lower SVC. Left subclavian dual lead cardiac conduction device in place. IMPRESSION: Expected position of the right upper extremity PICC. RADIA
--- NOTE | 2018-05-01 12:23 | PROVIDER PROGRESS NOTE ---
Subjective - Prog Note Date Prog Note Date: 05/01/18 - Subjective Pt reports feeling: No change Subjective: pt report he had fever on last night. he report his abdominal pain is well controlled. I called Dr. Garcia, we will monitor pt overnight. perennial house manager will discuss with pt the options for infusion of antibiotics either in home or nurse facility or other options. pt has PICC line now. Current Medications - Current Medications Current Medications: Active Medications Acetaminophen (Tylenol) 650 mg PO Q4HR PRN PRN Reason: Pain 1 to 4 Last Admin: 04/30/18 23:58 Dose: 650 mg Aspirin ([facility] Tobi Aspirin) 81 mg PO DAILY [facility] Last Admin: 05/01/18 08:36 Dose: 81 mg Atorvastatin Calcium (Lipitor) 20 mg PO QPM [facility] Last Admin: 04/30/18 20:15 Dose: 20 mg Carvedilol (Coreg) 12.5 mg PO BID [facility] Last Admin: 05/01/18 08:36 Dose: 12.5 mg Enoxaparin Sodium (Lovenox) 40 mg SUBQ DAILY [facility] Last Admin: 05/01/18 08:36 Dose: 40 mg Hydromorphone HCl (Dilaudid Inj Carp) 1 mg IVP Q2HR PRN PRN Reason: Pain 8 to 10 Piperacillin Sod/Tazobactam (Sod 3.375 gm/ Sodium Chloride) 100 mls @ 200 mls/hr IV Q6H [facility] Last Infusion: 05/01/18 07:13 Dose: Infused Insulin Aspart (Novolog) 2 - 10 unit SUBQ 0800,1200,1700,2100 ALY; Protocol Last Admin: 05/01/18 12:03 Dose: 2 unit Ketorolac Tromethamine (Toradol Inj (15mg)) 15 mg IVP Q6HR PRN PRN Reason: PAIN Stop: 05/04/18 20:04 Lisinopril (Zestril) 20 mg PO DAILY [facility] Last Admin: 05/01/18 08:36 Dose: 20 mg Ondansetron HCl (Zofran Inj) 4 mg IVP Q6HR PRN PRN Reason: Nausea / Vomiting Ondansetron HCl (Zofran Odt) 4 mg TL Q6HR PRN PRN Reason: Nausea / Vomiting Oxycodone HCl (Roxicodone) 5 mg PO Q4HR PRN PRN Reason: Pain 5 to 7 Phenazopyridine HCl (Pyridium) 100 mg PO TID PRN PRN Reason: buring on urination Last Admin: 04/30/18 19:23 Dose: 100 mg Polyethylene Glycol (Miralax) 17 gm PO DAILY [facility] Last Admin: 05/01/18 08:36 Dose: 17 gm Sodium Chloride (Normal Saline Flush 0.9%) 10 ml IVP PRN PRN PRN Reason: NEEDED PER PROVIDER ORDERS Last Admin: 04/30/18 19:23 Dose: 10 ml Sodium Chloride (Normal Saline Flush 0.9%) 10 ml IVP 0100,0900,1700 [facility] Last Admin: 05/01/18 07:08 Dose: 10 ml Tamsulosin HCl (Flomax) 0.4 mg PO DAILY [facility] Last Admin: 05/01/18 08:36 Dose: 0.4 mg Temazepam (Restoril) 7.5 mg PO QPM PRN PRN Reason: Insomnia Last Admin: 04/29/18 22:03 Dose: 7.5 mg Aspirin 81 mg PO DAILY 04/29/18 Carvedilol [Coreg] 12.5 mg PO BID 04/29/18 Lisinopril 20 mg PO DAILY 04/29/18 Methotrexate 20 mg PO MO 04/29/18 Rosuvastatin Calcium 10 mg PO DAILY 04/29/18 Sitagliptin Phosphate [Januvia] 50 mg PO DAILY 04/29/18 Sour Ramires Extract [Tart Ramires Extract] 1,000 mg PO DAILY 04/29/18 Ubidecarenone [Co Q-10] 300 mg PO DAILY 04/29/18 metFORMIN [Glucophage] 500 mg PO BID 04/29/18 Objective - Vital Signs/Intake & Output Vital Signs: Vital Signs x48h Temp Pulse Resp BP Pulse Ox 05/01/18 07:34 37.1 C 61 20 125/70 98 05/01/18 06:02 37 C 55 L 16 123/64 98 Intake & Output: Intake & Output 04/28/18 04/29/18 04/30/18 05/01/18 23:59 23:59 23:59 23:59 Intake Total 3818.28 3408.75 700 Output Total 875 2750 1050 Balance 2943.28 658.75 -350 - Lab Results Fish Bones: 05/01/18 05:05 05/01/18 05:05 Other Labs: Lab Results x24hrs 05/01/18 05/01/18 05/01/18 Range/Units 11:47 08:00 07:36 WBC (4.8-10.8) x10^3/uL RBC (4.70-6.10) 10^6/uL Hgb (14.0-18.0) g/dL Hct (42.0-52.0) % MCV (80.0-94.0) fL MCH (27.0-31.0) pg MCHC (32.0-36.0) g/dL RDW (12.0-15.0) % Plt Count (130-450) 10^3/uL MPV (7.4-11.4) fL Neut # (Auto) (1.5-6.6) 10^3/uL Lymph # (Auto) (1.5-3.5) 10^3/uL [place] # (Auto) (0.0-1.0) 10^3/uL Eos # (Auto) (0.0-0.7) 10^3/uL Baso # (Auto) (0.0-0.1) 10^3/uL Absolute Nucleated RBC x10^3/uL Nucleated RBC % /100WBC Sodium (135-145) mmol/L Potassium (3.5-5.0) mmol/L Chloride (101-111) mmol/L Carbon Dioxide (21-32) mmol/L Anion Gap (6-13) BUN (6-20) mg/dL Creatinine (0.6-1.2) mg/dL Estimated GFR (MDRD) (>89) Glucose (70-100) mg/dL POC Whole Bld Glucose 154 H 143 H (70 - 100) mg/dL Lactic Acid 0.9 (0.5-2.2) mmol/L Calcium (8.5-10.3) mg/dL 05/01/18 05/01/18 04/30/18 Range/Units 05:05 05:05 19:59 WBC 9.9 (4.8-10.8) x10^3/uL RBC 4.21 L (4.70-6.10) 10^6/uL Hgb 11.6 L (14.0-18.0) g/dL Hct 34.2 L (42.0-52.0) % MCV 81.1 (80.0-94.0) fL MCH 27.5 (27.0-31.0) pg MCHC 33.9 (32.0-36.0) g/dL RDW 15.2 H (12.0-15.0) % Plt Count 274 (130-450) 10^3/uL MPV 7.3 L (7.4-11.4) fL Neut # (Auto) 4.9 (1.5-6.6) 10^3/uL Lymph # (Auto) 2.3 (1.5-3.5) 10^3/uL [place] # (Auto) 2.5 H (0.0-1.0) 10^3/uL Eos # (Auto) 0.1 (0.0-0.7) 10^3/uL Baso # (Auto) 0.0 (0.0-0.1) 10^3/uL Absolute Nucleated RBC 0.00 x10^3/uL Nucleated RBC % 0.0 /100WBC Sodium 137 (135-145) mmol/L Potassium 3.9 (3.5-5.0) mmol/L Chloride 106 (101-111) mmol/L Carbon Dioxide 23 (21-32) mmol/L Anion Gap 8.0 (6-13) BUN 11 (6-20) mg/dL Creatinine 1.1 (0.6-1.2) mg/dL Estimated GFR (MDRD) 67 L (>89) Glucose 154 H (70-100) mg/dL POC Whole Bld Glucose 176 H (70 - 100) mg/dL Lactic Acid (0.5-2.2) mmol/L Calcium 8.6 (8.5-10.3) mg/dL 04/30/18 Range/Units 16:32 WBC (4.8-10.8) x10^3/uL RBC (4.70-6.10) 10^6/uL Hgb (14.0-18.0) g/dL Hct (42.0-52.0) % MCV (80.0-94.0) fL MCH (27.0-31.0) pg MCHC (32.0-36.0) g/dL RDW (12.0-15.0) % Plt Count (130-450) 10^3/uL MPV (7.4-11.4) fL Neut # (Auto) (1.5-6.6) 10^3/uL Lymph # (Auto) (1.5-3.5) 10^3/uL [place] # (Auto) (0.0-1.0) 10^3/uL Eos # (Auto) (0.0-0.7) 10^3/uL Baso # (Auto) (0.0-0.1) 10^3/uL Absolute Nucleated RBC x10^3/uL Nucleated RBC % /100WBC Sodium (135-145) mmol/L Potassium (3.5-5.0) mmol/L Chloride (101-111) mmol/L Carbon Dioxide (21-32) mmol/L Anion Gap (6-13) BUN (6-20) mg/dL Creatinine (0.6-1.2) mg/dL Estimated GFR (MDRD) (>89) Glucose (70-100) mg/dL POC Whole Bld Glucose 132 H (70 - 100) mg/dL Lactic Acid (0.5-2.2) mmol/L Calcium (8.5-10.3) mg/dL ABX Reporting Has patient been on IV antibiotics over the past 48 hours?: Yes Assessment/Plan - Problem List (1) Diverticulitis Impression: 05/01 pt had mild fever on last night, called surgeon DR. Zach Garcia, will watch overnight for pt, CT of abdomen is not needed per Dr. Garcia's recommendation. blood culture check lactic acid continue antibiotics 04/30 clinic pt had a great improvement, abdominal pain is good controlled, pt tolerate the diet, no N/V/D, no fever, chill, WBC is normal order PICC line per surgeon Dr. Zach Garcia recommend, pt may be d/c with IV of antibiotics, then image study in one week, case picker set for home infusion. CT of abdomen reveals diverticulitis with abscess. consult with surgeon, follow up Zosyn blood culture, follow up gently IVF (2) DM2 (diabetes mellitus, type 2) Conclusion/Plan: glucose controlled, continue slide scale hold metformin check A1C slide scale, ACHS hypoglycemia protocol (3) CHF (congestive heart failure) Conclusion/Plan: continue home meds continue tele, vital monitor pt 04/30 ECHO reveals EF 30%, combination of systolic and diastolic hold IVF continue home meds continue Tele, vital monitor pt has pacemaker and AICD. pt denies any chest pain, SOB, cardiac distress. will check ECHO, have EKG on tele, vital monitor resume home Coreg, Lisinopril, statin, Aspirin
--- NOTE | 2018-05-01 17:13 | PROVIDER PROGRESS NOTE ---
Assessment/Plan - Problem List (1) Diverticulitis Assessment/Plan: Clinically improving. Rec: continue present therapy; repeat imaging in3-4 days to reassess status of his diverticular abscess. Discussed with pt and family and hospitalists who agree. - Current Meds Current Meds: Current Medications Generic Name Dose Route Start Last Admin Trade Name Freq PRN Reason Stop Dose Admin Acetaminophen 650 mg 04/29/18 06:03 04/30/18 23:58 Tylenol PO 650 mg Q4HR PRN Administration Pain 1 to 4 Aspirin 81 mg 04/30/18 09:00 05/01/18 08:36 [facility] Tobi Aspirin PO 81 mg DAILY ALY Administration Atorvastatin Calcium 20 mg 04/29/18 21:00 04/30/18 20:15 Lipitor PO 20 mg QPM ALY Administration Carvedilol 12.5 mg 04/29/18 21:00 05/01/18 08:36 Coreg PO 12.5 mg BID ALY Administration Enoxaparin Sodium 40 mg 04/29/18 09:00 05/01/18 08:36 Lovenox SUBQ 40 mg DAILY ALY Administration Piperacillin Sod/Tazobactam 100 mls @ 200 mls/hr 04/29/18 07:00 05/01/18 14:50 Sod 3.375 gm/ Sodium Chloride IV Infused Q6H ALY Infusion Insulin Aspart 2 - 10 unit 04/29/18 17:00 05/01/18 12:03 Novolog SUBQ 2 unit 0800,1200,1700,2100 ALY Administration Protocol Lisinopril 20 mg 04/30/18 09:00 05/01/18 08:36 Zestril PO 20 mg DAILY ALY Administration Phenazopyridine HCl 100 mg 04/29/18 09:00 04/30/18 19:23 Pyridium PO 100 mg TID PRN Administration buring on urination Polyethylene Glycol 17 gm 04/29/18 09:00 05/01/18 08:36 Miralax PO 17 gm DAILY ALY Administration Sodium Chloride 10 ml 04/29/18 06:03 04/30/18 19:23 Normal Saline Flush 0.9% IVP 10 ml PRN PRN Administration NEEDED PER PROVIDER ORDERS Sodium Chloride 10 ml 04/29/18 09:00 05/01/18 07:08 Normal Saline Flush 0.9% IVP 10 ml 0100,0900,1700 ALY Administration Tamsulosin HCl 0.4 mg 04/30/18 18:40 05/01/18 08:36 Flomax PO 0.4 mg DAILY ALY Administration Temazepam 7.5 mg 04/29/18 20:04 04/29/18 22:03 Restoril PO 7.5 mg QPM PRN Administration Insomnia - Lab Result Lab results reviewed: Yes Fish Bone Diagrams: 05/01/18 05:05 05/01/18 05:05 - Additional Planning Condition/Complexity: Improved Plan Discussed with:: Patient, Family Time Spent: 15-30 minutes Subjective - Subjective Patient Reports: Feeling Better (minimal abdominal "tightness"; tolerating regular diet, ambulating and moving bowels and voiding well.), Resting Comfortably Objective Vital Signs: Vital Signs - 24 hr 04/30/18 04/30/18 05/01/18 19:47 23:47 01:15 Temperature 37.5 C 38.3 C H 37.0 C Heart Rate [ 76 69 Radial] Respiratory 18 16 Rate Blood Pressure 135/73 H 109/57 L [Left Brachial artery] O2 Saturation 96 94 05/01/18 05/01/18 05/01/18 06:02 07:34 13:03 Temperature 37 C 37.1 C 37.1 C Heart Rate [ 55 L 61 89 Radial] Respiratory 16 20 18 Rate Blood Pressure 123/64 125/70 112/65 [Left Brachial artery] O2 Saturation 98 98 98 05/01/18 16:00 Temperature 36.7 C Heart Rate [ 78 Radial] Respiratory 18 Rate Blood Pressure 125/75 [Left Brachial artery] O2 Saturation 99 Oxygen O2 Source Room air I&O (Last 24 Hrs): Intake and Output Totals x24h 04/29/18 04/30/18 05/01/18 23:59 23:59 23:59 Intake Total 3818.28 3408.75 800 Output Total 875 2750 1150 Balance 2943.28 658.75 -350 General: Alert, Oriented x3, Cooperative, No acute distress Abdomen: Normal bowel sounds, Soft, No hepatospenomegaly, No masses, Other (mild suprapubic and llq tenderness with voluntary guarding; stable.) Extremities: No edema, Normal pulses, No tenderness/swelling - Results Results: Laboratory Results WBC 9.9 x10^3/uL (4.8-10.8) 05/01/18 05:05 RBC 4.21 10^6/uL (4.70-6.10) L 05/01/18 05:05 Hgb 11.6 g/dL (14.0-18.0) L 05/01/18 05:05 Hct 34.2 % (42.0-52.0) L 05/01/18 05:05 MCV 81.1 fL (80.0-94.0) 05/01/18 05:05 MCH 27.5 pg (27.0-31.0) 05/01/18 05:05 MCHC 33.9 g/dL (32.0-36.0) 05/01/18 05:05 RDW 15.2 % (12.0-15.0) H 05/01/18 05:05 Plt Count 274 10^3/uL (130-450) 05/01/18 05:05 MPV 7.3 fL (7.4-11.4) L 05/01/18 05:05 Neut # (Auto) 4.9 10^3/uL (1.5-6.6) 05/01/18 05:05 Lymph # (Auto) 2.3 10^3/uL (1.5-3.5) 05/01/18 05:05 [place] # (Auto) 2.5 10^3/uL (0.0-1.0) H 05/01/18 05:05 Eos # (Auto) 0.1 10^3/uL (0.0-0.7) 05/01/18 05:05 Baso # (Auto) 0.0 10^3/uL (0.0-0.1) 05/01/18 05:05 Absolute Nucleated RBC 0.00 x10^3/uL 05/01/18 05:05 Nucleated RBC % 0.0 /100WBC 05/01/18 05:05 Sodium 137 mmol/L (135-145) 05/01/18 05:05 Potassium 3.9 mmol/L (3.5-5.0) 05/01/18 05:05 Chloride 106 mmol/L (101-111) 05/01/18 05:05 Carbon Dioxide 23 mmol/L (21-32) 05/01/18 05:05 Anion Gap 8.0 (6-13) 05/01/18 05:05 BUN 11 mg/dL (6-20) 05/01/18 05:05 Creatinine 1.1 mg/dL (0.6-1.2) 05/01/18 05:05 Estimated GFR (MDRD) 67 (>89) L 05/01/18 05:05 Glucose 154 mg/dL (70-100) H 05/01/18 05:05 POC Whole Bld Glucose 154 mg/dL (70 - 100) H 05/01/18 11:47 Glycated Hemoglobin 5.8 % (4.6-6.2) 04/29/18 03:55 Estim Average Glucose 120 (70-100) H 04/29/18 03:55 Lactic Acid 0.9 mmol/L (0.5-2.2) 05/01/18 08:00 Calcium 8.6 mg/dL (8.5-10.3) 05/01/18 05:05 Total Bilirubin 0.4 mg/dL (0.2-1.0) 04/29/18 04:05 AST 16 IU/L (10-42) 04/29/18 04:05 ALT 14 IU/L (10-60) 04/29/18 04:05 Alkaline Phosphatase 70 IU/L (42-121) 04/29/18 04:05 Total Protein 8.3 g/dL (6.7-8.2) H 04/29/18 04:05 Albumin 3.5 g/dL (3.2-5.5) 04/29/18 04:05 Globulin 4.8 g/dL (2.1-4.2) H 04/29/18 04:05 Albumin/Globulin Ratio 0.7 (1.0-2.2) L 04/29/18 04:05 Lipase 27 U/L (22-51) 04/29/18 04:05 Urine Color YELLOW 04/29/18 04:00 Urine Clarity CLEAR (CLEAR) 04/29/18 04:00 Urine pH 5.5 PH (5.0-7.5) 04/29/18 04:00 Ur Specific [place] >=1.030 (1.002-1.030) H 04/29/18 04:00 Urine Protein 100 mg/dL (NEGATIVE) H 04/29/18 04:00 Urine Glucose (UA) NEGATIVE mg/dL (NEGATIVE) 04/29/18 04:00 Urine Ketones NEGATIVE mg/dL (NEGATIVE) 04/29/18 04:00 Urine Occult Blood TRACE-LYSE (NEGATIVE) 04/29/18 04:00 Urine Nitrite NEGATIVE (NEGATIVE) 04/29/18 04:00 Urine Bilirubin NEGATIVE (NEGATIVE) 04/29/18 04:00 Urine Urobilinogen 0.2 (NORMAL) E.U./dL (NORMAL) 04/29/18 04:00 Ur Leukocyte Esterase TRACE (NEGATIVE) H 04/29/18 04:00 Urine RBC 0-5 /HPF (0-5) 04/29/18 04:00 Urine WBC 4-5 /HPF (0-3) 04/29/18 04:00 Ur Squamous Epith Cells FEW Squamous (<= Few) 04/29/18 04:00 Urine Bacteria Rare /HPF (None Seen) 04/29/18 04:00 Urine Mucus Marked Strands 04/29/18 04:00 Ur Microscopic Review INDICATED 04/29/18 04:00 Urine Culture Comments INDICATED 04/29/18 04:00 ABX Reporting Has patient been on IV antibiotics over the past 48 hours?: Yes
[2018-05-01] MEDS: ATORVASTATIN 10 MG TABLET PO SCH (21:02)
[2018-05-02] MEDS: PIPERACILLIN/TAZOBACTAM 3.375 GM in SODIUM CHLORIDE 0.9% MINIBAG 100 ML IV SCH ×3 (01:05→13:42)
[2018-05-02] MEDS: SODIUM CHLORIDE FLUSH 0.9% 10 ML SYRINGE IVP PRN ×2 (01:06→04:48)
[2018-05-02 05:35] LABS: BASOPHILS # (AUTO) 0.1 10^3/uL (0.0-0.1); BASOPHILS % (AUTO) 0.6 %; EOSINOPHILS # (AUTO) 0.1 10^3/uL (0.0-0.7); EOSINOPHILS % (AUTO) 1.3 %; HGB - HEMOGLOBIN 10.7 g/dL (14.0-18.0); LYMPHOCYTES # (AUTO) 1.9 10^3/uL (1.5-3.5); LYMPHOCYTES % (AUTO) 21.1 %; MEAN CORPUSCULAR HGB CONC 34.3 g/dL (32.0-36.0); MEAN CORPUSCULAR VOLUME 81.6 fL (80.0-94.0); MEAN PLATELET VOLUME 7.3 fL (7.4-11.4); MONOCYTES # (AUTO) 1.8 10^3/uL (0.0-1.0); MONOCYTES % (AUTO) 19.8 %; NEUTROPHILS # (AUTO) 5.2 10^3/uL (1.5-6.6); NEUTROPHILS % (AUTO) 57.2 %; PLT - PLATELET COUNT 256 10^3/uL (130-450); RED BLOOD COUNT 3.84 10^6/uL (4.70-6.10); RED CELL DISTRIBUTION WIDTH 15.4 % (12.0-15.0); WHITE BLOOD COUNT 9.1 x10^3/uL (4.8-10.8)
[2018-05-02 05:37] LABS: CALCIUM 8.2 mg/dL (8.5-10.3)
[2018-05-02 06:22] LABS: PLATELET MORPHOLOGY 1+ LARGE PLATELETS (NORMAL); RBC MORPHOLOGY (MULTIPLE) NORMAL APPEARANCE (NORMAL)
[2018-05-02 06:23] LABS: DIFFERENTIAL COMMENT MANUAL=AUTO DIFF; PLATELET ESTIMATE, MANUAL NORMAL (130-450,000) (NORMAL)
[2018-05-02] MEDS: INSU100I18 SUBQ SCH ×2 (08:26→12:02)
[2018-05-02] MEDS: LISINOPRIL 20 MG TABLET PO SCH (08:27)
[2018-05-02] MEDS: ASPIRIN CHEW 81 MG TABLET PO SCH (08:27)
[2018-05-02] MEDS: TAMSULOSIN 0.4 MG CAPSULE PO SCH (08:27)
[2018-05-02] MEDS: CARVEDILOL 12.5 MG TABLET PO SCH (08:27)
[2018-05-02] MEDS: POLYETHYLENE GLYCOL 3350 17 GM PACKET PO SCH (08:28)
[2018-05-02] MEDS: SODIUM CHLORIDE FLUSH 0.9% 10 ML SYRINGE IVP SCH (08:28)
[2018-05-02] MEDS: ENOXAPARIN 40 MG/0.4 ML SYRINGE SUBQ SCH (08:28)
--- NOTE | 2018-05-02 08:41 | PROVIDER PROGRESS NOTE ---
Assessment/Plan - Problem List (1) Diverticulitis Assessment/Plan: Continues to improve clinically. Rec: repeat CT in 2 days; add probiotic, increase activity as gaby, ow continue present management. - Current Meds Current Meds: Current Medications Generic Name Dose Route Start Last Admin Trade Name Freq PRN Reason Stop Dose Admin Acetaminophen 650 mg 04/29/18 06:03 04/30/18 23:58 Tylenol PO 650 mg Q4HR PRN Administration Pain 1 to 4 Aspirin 81 mg 04/30/18 09:00 05/02/18 08:27 [facility] Tobi Aspirin PO 81 mg DAILY ALY Administration Atorvastatin Calcium 20 mg 04/29/18 21:00 05/01/18 21:02 Lipitor PO 20 mg QPM ALY Administration Carvedilol 12.5 mg 04/29/18 21:00 05/02/18 08:27 Coreg PO 12.5 mg BID ALY Administration Enoxaparin Sodium 40 mg 04/29/18 09:00 05/02/18 08:28 Lovenox SUBQ 40 mg DAILY ALY Administration Piperacillin Sod/Tazobactam 100 mls @ 200 mls/hr 04/29/18 07:00 05/02/18 07:21 Sod 3.375 gm/ Sodium Chloride IV Infused Q6H ALY Infusion Insulin Aspart 2 - 10 unit 04/29/18 17:00 05/02/18 08:26 Novolog SUBQ 2 unit 0800,1200,1700,2100 ALY Administration Protocol Ketorolac Tromethamine 15 mg 04/29/18 20:05 05/02/18 08:29 Toradol Inj (15mg) IVP 05/04/18 20:04 15 mg Q6HR PRN Administration PAIN Lisinopril 20 mg 04/30/18 09:00 05/02/18 08:27 Zestril PO 20 mg DAILY ALY Administration Phenazopyridine HCl 100 mg 04/29/18 09:00 04/30/18 19:23 Pyridium PO 100 mg TID PRN Administration buring on urination Polyethylene Glycol 17 gm 04/29/18 09:00 05/02/18 08:28 Miralax PO Not Given DAILY ALY Sodium Chloride 10 ml 04/29/18 06:03 05/02/18 04:48 Normal Saline Flush 0.9% IVP 30 ml PRN PRN Administration NEEDED PER PROVIDER ORDERS Sodium Chloride 10 ml 04/29/18 09:00 05/02/18 08:28 Normal Saline Flush 0.9% IVP Not Given 0100,0900,1700 ALY Tamsulosin HCl 0.4 mg 04/30/18 18:40 05/02/18 08:27 Flomax PO 0.4 mg DAILY ALY Administration Temazepam 7.5 mg 04/29/18 20:04 04/29/18 22:03 Restoril PO 7.5 mg QPM PRN Administration Insomnia - Lab Result Lab results reviewed: Yes Fish Bone Diagrams: 05/02/18 04:50 05/02/18 04:50 - Additional Planning Condition/Complexity: Improved My Orders: My Active Orders 05/02/18 17:00 Saccharomyces Boulardii [Florastor] 500 mg PO BIDWM Consult/Specialty: Other (radiology: discussed percutaneous drainage with Dr. Brooks, who is credentialled now for the procedure, but admin details have yet to be worked out, so not sure when he will be able to perform these procedures.) Plan Discussed with:: Patient, Other (hospitalist Kashif Colby) Time Spent: 15-30 minutes Subjective - Subjective Patient Reports: Feeling Better, Resting Comfortably, No Complaints (denies abd pain, n/v; notes improved dysuria and no longer noting abd pressure prior to bms), Diarrhea (loose stools) Objective Vital Signs: Vital Signs - 24 hr 05/01/18 05/01/18 05/01/18 13:03 16:00 20:58 Temperature 37.1 C 36.7 C 37.2 C Heart Rate [ 89 78 77 Radial] Respiratory 18 18 20 Rate Blood Pressure 112/65 125/75 117/68 [Left Brachial artery] O2 Saturation 98 99 98 05/01/18 05/02/18 05/02/18 21:00 00:00 04:57 Temperature 37.2 C 36.9 C Heart Rate [ 80 69 61 Radial] Respiratory 18 18 Rate Blood Pressure 119/63 109/61 121/72 [Left Brachial artery] O2 Saturation 97 98 05/02/18 07:38 Temperature 36.9 C Heart Rate [ 64 Radial] Respiratory 18 Rate Blood Pressure 113/58 L [Left Brachial artery] O2 Saturation 98 Oxygen O2 Source Room air I&O (Last 24 Hrs): Intake and Output Totals x24h 04/30/18 05/01/18 05/02/18 23:59 23:59 23:59 Intake Total 3408.75 1860 200 Output Total 2750 2050 1225 Balance 658.75 -190 -1025 General: Alert, Oriented x3, Cooperative, No acute distress Abdomen: Normal bowel sounds, Soft, No hepatospenomegaly, No masses, Other (minimal suprapubic and LLQ tenderness without peritoneal signs) Extremities: No edema, No tenderness/swelling - Results Results: Laboratory Results WBC 9.1 x10^3/uL (4.8-10.8) 05/02/18 04:50 RBC 3.84 10^6/uL (4.70-6.10) L 05/02/18 04:50 Hgb 10.7 g/dL (14.0-18.0) L 05/02/18 04:50 Hct 31.3 % (42.0-52.0) L 05/02/18 04:50 MCV 81.6 fL (80.0-94.0) 05/02/18 04:50 MCH 28.0 pg (27.0-31.0) 05/02/18 04:50 MCHC 34.3 g/dL (32.0-36.0) 05/02/18 04:50 RDW 15.4 % (12.0-15.0) H 05/02/18 04:50 Plt Count 256 10^3/uL (130-450) 05/02/18 04:50 MPV 7.3 fL (7.4-11.4) L 05/02/18 04:50 Neut # (Auto) 5.2 10^3/uL (1.5-6.6) 05/02/18 04:50 Lymph # (Auto) 1.9 10^3/uL (1.5-3.5) 05/02/18 04:50 [place] # (Auto) 1.8 10^3/uL (0.0-1.0) H 05/02/18 04:50 Eos # (Auto) 0.1 10^3/uL (0.0-0.7) 05/02/18 04:50 Baso # (Auto) 0.1 10^3/uL (0.0-0.1) 05/02/18 04:50 Absolute Nucleated RBC 0.01 x10^3/uL 05/02/18 04:50 Band Neuts % (Manual) Not Reportable 05/02/18 04:50 Abnorm Lymph % (Manual) Not Reportable 05/02/18 04:50 Nucleated RBC % 0.1 /100WBC 05/02/18 04:50 Neutrophils # (Manual) Not Reportable 05/02/18 04:50 Lymphocytes # (Manual) Not Reportable 05/02/18 04:50 Monocytes # (Manual) Not Reportable 05/02/18 04:50 Eosinophils # (Manual) Not Reportable 05/02/18 04:50 Basophils # (Manual) Not Reportable 05/02/18 04:50 Differential Comment MANUAL=AUTO DIFF 05/02/18 04:50 Platelet Estimate NORMAL (130-450,000) (NORMAL) 05/02/18 04:50 Platelet Morphology 1+ LARGE PLATELETS (NORMAL) 05/02/18 04:50 RBC Morph Micro Appear NORMAL APPEARANCE (NORMAL) 05/02/18 04:50 Sodium 135 mmol/L (135-145) 05/02/18 04:50 Potassium 3.8 mmol/L (3.5-5.0) 05/02/18 04:50 Chloride 103 mmol/L (101-111) 05/02/18 04:50 Carbon Dioxide 23 mmol/L (21-32) 05/02/18 04:50 Anion Gap 9.0 (6-13) 05/02/18 04:50 BUN 11 mg/dL (6-20) 05/02/18 04:50 Creatinine 1.0 mg/dL (0.6-1.2) 05/02/18 04:50 Estimated GFR (MDRD) 75 (>89) L 05/02/18 04:50 Glucose 157 mg/dL (70-100) H 05/02/18 04:50 POC Whole Bld Glucose 153 mg/dL (70 - 100) H 05/02/18 07:27 Glycated Hemoglobin 5.8 % (4.6-6.2) 04/29/18 03:55 Estim Average Glucose 120 (70-100) H 04/29/18 03:55 Lactic Acid 0.9 mmol/L (0.5-2.2) 05/01/18 08:00 Calcium 8.2 mg/dL (8.5-10.3) L 05/02/18 04:50 Total Bilirubin 0.4 mg/dL (0.2-1.0) 04/29/18 04:05 AST 16 IU/L (10-42) 04/29/18 04:05 ALT 14 IU/L (10-60) 04/29/18 04:05 Alkaline Phosphatase 70 IU/L (42-121) 04/29/18 04:05 Total Protein 8.3 g/dL (6.7-8.2) H 04/29/18 04:05 Albumin 3.5 g/dL (3.2-5.5) 04/29/18 04:05 Globulin 4.8 g/dL (2.1-4.2) H 04/29/18 04:05 Albumin/Globulin Ratio 0.7 (1.0-2.2) L 04/29/18 04:05 Lipase 27 U/L (22-51) 04/29/18 04:05 Urine Color YELLOW 04/29/18 04:00 Urine Clarity CLEAR (CLEAR) 04/29/18 04:00 Urine pH 5.5 PH (5.0-7.5) 04/29/18 04:00 Ur Specific [place] >=1.030 (1.002-1.030) H 04/29/18 04:00 Urine Protein 100 mg/dL (NEGATIVE) H 04/29/18 04:00 Urine Glucose (UA) NEGATIVE mg/dL (NEGATIVE) 04/29/18 04:00 Urine Ketones NEGATIVE mg/dL (NEGATIVE) 04/29/18 04:00 Urine Occult Blood TRACE-LYSE (NEGATIVE) 04/29/18 04:00 Urine Nitrite NEGATIVE (NEGATIVE) 04/29/18 04:00 Urine Bilirubin NEGATIVE (NEGATIVE) 04/29/18 04:00 Urine Urobilinogen 0.2 (NORMAL) E.U./dL (NORMAL) 04/29/18 04:00 Ur Leukocyte Esterase TRACE (NEGATIVE) H 04/29/18 04:00 Urine RBC 0-5 /HPF (0-5) 04/29/18 04:00 Urine WBC 4-5 /HPF (0-3) 04/29/18 04:00 Ur Squamous Epith Cells FEW Squamous (<= Few) 04/29/18 04:00 Urine Bacteria Rare /HPF (None Seen) 04/29/18 04:00 Urine Mucus Marked Strands 04/29/18 04:00 Ur Microscopic Review INDICATED 04/29/18 04:00 Urine Culture Comments INDICATED 04/29/18 04:00 ABX Reporting Has patient been on IV antibiotics over the past 48 hours?: Yes
--- NOTE | 2018-05-02 12:04 | DISCHARGE SUMMARY ---
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 Diverticulitis of large intestine with abscess without bleeding (K57.20) new on this admit, treatment to continue at home with IV infusions. Diabetes mellitus type 2, non-insulin dependent (E11.9) chronic, stable. Chronic systolic (congestive) heart failure (I50.22) chronic, stable. Fever (R50.9) resolved. Cardiac pacemaker (Z95.0) chronic, stable. - HPI History of Present Illness: Aki Moran is 67-yr-old male with a past medical history of diabetes mellitus type 2-oral meds, CHF, HDL, seizures, Hepatitis, diverticulitis, and status post pacemaker/ICD implant. The patient presented to the ER with complaints of lower quadrant abdominal pain. The patient reported that his lower abdominal quadrant pain began three weeks ago, and has remained since that time. On Tuesday (04/24/18), this pain became more severe and was accompanied with nausea and vomiting. On Tuesday (04/25) he went to visit his PCP, who started him on cipro/flagyl. He started these medications but the symptoms did not improve, in fact, they became even worse, now accompanied by reports of chills without fever at home, and dysuria with burning. The patient had diverticulitis approximately 6 yrs ago. Upon exam he denied chest pain, shortness of breath, cough, headache, or vision changes. An abdominal/pelvic CT scan in ER showed acute sigmoid diverticulitis with a pericolonic abscess measuring 1.7 x 3.9 cm interposed between the sigmoid colon and the dome of the urinary bladder. WBC count was normal. The patient was afebrile and hemodynamically stable in ER. General surgery was consulted and the patient will be admitted to inpatient for further care and IV antibiotic treatment as per general surgery recommendations. - HOSPITAL COURSE Hospital Course: 1) Sigmoid diverticulitis The patient was found to have diverticulitis on imaging upon admission showing a sigmoid diverticulitis with developing abscess or fistula involving the urinary bladder. A general surgery consult was made who recommended IV treatment as the patient failed out patient treatment with Cipro/flagyl. The patient was continued on IV Zosyn, had a PICC line placed in his right upper extremities for home infusions. The patient developed a fever on the night of 04/30, so his stay was extended for 24 more hours. Blood cultures and lactic acid levels were normal. The patient was free of pain at the time of discharge. [facility] customer contact representative came to the patient's room to instruct on proper sterile techniques of home IV antibiotic administration prior to discharge. The patient will undergo a repeat CT on ~48 hours from the time of discharge on an out patient bases and see general surgery as planned on Wednesday May 09, 2018. (2) DM2 (diabetes mellitus, type 2) The patient is controlled using oral meds including metformin, and Jaunivia. A hemoglobin A1C was 5.8% on 04/29/18 showing good control at home. During his hospital stay, his home medications were placed on hold as per hospital protocol. His blood sugars were monitored, and was given sliding scale insulin. At the time of discharge, all of his home meds were resumed and this condition is considered to be stable upon discharge. (3) CHF (congestive heart failure) The patient had a known history of this and an echocardiogram was completed on 04/30/18 in light of this acute illness. It showed a final result of moderate- severely globally impaired with an EF of 30-35%. He was continued on telemetry, denies chest pain and continued on his home medications including Coreg, ASA, a statin, and an berna inhibitor. The patient has a history of a pacemaker/ICD. This condition is considered to be stable upon discharge. (4) Abscess of sigmoid colon due to diverticulitis Imaging showed a 3.9 x 1.8 cm developing abscess/fistula extending from the sigmoid colon to the urinary bladder. The patient did complain of dysuria leading up to this admission that has now subsided. This condition is being treated with IV Zosyn, considered to be stable, and may need to be drained depending on the patient's upcoming abdominal CT. (5) Fever On the night prior to discharge home, the patient had a temp max recorded as 38.3, that resolved. The patient reported fevers and chills at home prior to admission, but none since that time. This condition is considered to be resolve d. Disposition: The patient was medically stable and preferred to have home infusions to continue his IV antibiotic treatment of his intestinal abscess. He was transported via private car home with his . - ALLERGIES Allergies/Adverse Reactions: Allergies Allergy/AdvReac Type Severity Reaction Status Date / Time No Known Drug Allergies Allergy Verified 04/29/18 03:57 - MEDICATIONS Home Medications: Ambulatory Orders Medication Instructions Recorded Confirmed Aspirin 81 mg PO DAILY 04/29/18 04/29/18 Carvedilol [Coreg] 12.5 mg PO BID 04/29/18 04/29/18 Lisinopril 20 mg PO DAILY 04/29/18 04/29/18 Methotrexate 20 mg PO MO 04/29/18 04/29/18 Rosuvastatin Calcium 10 mg PO DAILY 04/29/18 04/29/18 Sitagliptin Phosphate [Januvia] 50 mg PO DAILY 04/29/18 04/29/18 Sour Ramires Extract [Tart Ramires 1,000 mg PO DAILY 04/29/18 04/29/18 Extract] Ubidecarenone [Co Q-10] 300 mg PO DAILY 04/29/18 04/29/18 metFORMIN [Glucophage] 500 mg PO BID 04/29/18 04/29/18 Sewilhxxtxwr-Ehii-Tveyuolr,Iso 3.375 gm IV Q6H 7 Days #28 05/02/18 [Zosyn 3.375 gm/50 ml Galaxy] froz.piggy Saccharomyces Boulardii [Florastor] 250 mg PO BID #60 capsule 05/02/18 - PHYSICAL EXAM AT DISCHARGE General Appearance: positive: No acute distress, Alert Eyes Bilateral: positive: Normal inspection, PERRL, EOMI ENT: positive: ENT inspection nml, Pharynx nml, No signs of dehydration Neck: positive: Nml inspection, Thyroid nml, No JVD, Trachea midline Respiratory: positive: Chest non-tender, No respiratory distress, Breath sounds nml Cardiovascular: positive: Regular rate & rhythm, No murmur, No gallop Peripheral Pulses: positive: 2+ Abdomen: positive: Nml bowel sounds, No distention, Tenderness, Guarding Back: positive: Nml inspection Skin: positive: Color nml, No rash, Warm, Dry Extremities: positive: Non-tender, Full ROM, Nml appearance, No pedal edema Neurologic/Psychiatric: positive: Oriented x3, CN's nml (2-12), Motor nml, Sensation nml, Mood/affect nml Reflexes: Bicep (R): 4+, Bicep (L): 4+ - LABS Result Diagrams: 05/02/18 04:50 05/02/18 04:50 - DIAGNOSTIC IMAGING Diagnostic Imaging Results: Final report reviewed Diagnostic Imaging Results Comments: EXAM: CT ABDOMEN AND PELVIS EXAM DATE: 04/29/2018 05:12 AM. IMPRESSION: 1. Sigmoid diverticulitis with developing abscess or fistula extending from the sigmoid colon to the dome of the urinary bladder, measuring about 3.9 x 1.8 cm. EXAM: CHEST RADIOGRAPHY EXAM DATE: 05/01/2018 10:23 AM. IMPRESSION: Expected position of the right upper extremity PICC. ECHOCARDIOGRAM: Final read by Reyes Rouse MD 1. Overall LV systolic function is moderate-severely globally impaired with an EF of 30-35%. 2. Severe increase in the LA volume index. 3. Mild RA enlargement. 4. There is mild mitral regurg. 5. Mildly abnormal right heart pressures. - FOLLOW UP Follow Up: Disposition: 01 Home, Self Care Condition: Good Prescriptions: Gpbrsiqjchku-Gffx-Jvupcviv,Iso [Zosyn 3.375 gm/50 ml Galaxy] 3.375 gm IV Q6H 7 Days #28 froz.piggy Saccharomyces Boulardii [Florastor] 250 mg PO BID #60 capsule Diet: Regular Activity Restrictions: No Restrictions Shower Restrictions: No Driving Restrictions: No Weight Bearing: Full Weight Additional Instructions or Follow Up instructions: You were admitted for a diverticulis abscess that failed to improve with out patient therapy using Cipro and Flagyl. You were given IV antibiotics of Zosyn which has been sent to [facility] and should continue until you are directed otherwise. Please attend your scheduled CT scan to re-evaluate this abscess, and see Dr. Zcah Garcia on TuesdayMay 09. Return to the ED if you develop fevers, or any other new symptoms. Please see your PCP within one week. - TIME SPENT Time Spent in Discharge (Minutes): 50
[2018-05-02 14:29] VITALS: BP 128/65
[2018-05-02] MEDS ORDERED: SACCHAROMYCES BOULARDII 250 MG CAPSULE PO SCH (17:00)
== END 2018-05-02 17:08 | disposition home or self-care (01) | DRG 392 ==
LOC: ED 03:46 → MS3 06:03
PROVIDERS: ADMIT Nurse Practitioner Gerontology; ATTEND Nurse Practitioner
PROC: 02HV33Z Insertion of Infusion Device into Superior Vena Cava, Percutaneous Approach (ICD-10-PCS; principal; 2018-05-01)
DX: K57.92 Diverticulitis of intestine, part unspecified, without perforation or abscess without bleeding (principal); K57.20 Diverticulitis of large intestine with perforation and abscess without bleeding; E78.00 Pure hypercholesterolemia, unspecified; Z95.0 Presence of cardiac pacemaker; K63.2 Fistula of intestine; I50.22 Chronic systolic (congestive) heart failure; E11.9 Type 2 diabetes mellitus without complications; G40.909 Epilepsy, unspecified, not intractable, without status epilepticus; K75.9 Inflammatory liver disease, unspecified; R50.9 Fever, unspecified
CPT/HCPCS: 36415; 71045; 74177; 80048; 80053; 81001; 81003; 83036; 83605; 83690; 85025; 87040; 87086; 93005; 93306; 96361; 96365; 96375; 96376; 99284; 99285

== ENCOUNTER 2018-05-06 23:15 | Emergency (ER) | payer MEDICARE, OTHER ==
--- NOTE | 2018-05-07 00:13 | ED Physician Documentation ---
PD HPI ABD PAIN - Stated complaint Stated Complaint: ABDOMINAL PAIN - Chief complaint Chief Complaint: Abd Pain - History obtained from History obtained from: Patient, Family (spouse) - History of Present Illness Timing - onset: How many days ago (4) Timing - details: Gradual onset Pain level now: 5 Quality: Dull, Fullness/distended Location: Suprapubic, LLQ Radiation: Other (does not radiate) Improved by: Other (no ameliorating factors) Worsened by: Other (no exacerbating factors) Associated symptoms: Nausea. No: Fever, Vomiting Similar symptoms before: Diagnosis (diverticulitis, abdominal abscess) Recently seen: Admitted - Additional information Additional information: discharged from [facility] 4 days ago with PICC line in place and zosyn via PICC, diagnosed with sigmoid diverticulitis and "abscess or fistula" (per radiologist's reading) Review of Systems Constitutional: reports: Chills. denies: Fever, Sweats Cardiac: reports: Reviewed and negative Respiratory: reports: Reviewed and negative GI: reports: Abdominal Pain. denies: Nausea, Vomiting, Constipation, Diarrhea : denies: Dysuria, Frequency, Hematuria PD PAST MEDICAL HISTORY - Past Medical History Past Medical History: Yes Cardiovascular: Congestive heart failure, High cholesterol Respiratory: None Neuro: Head injury, Seizure disorder Endocrine/Autoimmune: Type 2 diabetes GI: Hepatitis : None HEENT: None Psych: None Musculoskeletal: Gout, Other Derm: None - Past Surgical History Past Surgical History: Yes General: Colonoscopy, EGD Ortho: Knee replacement, Rotator cuff repair, Carpal Tunnel surgery Cardiovascular: Pacemaker, AICD HEENT: Cataracts - Present Medications Home Medications: Ambulatory Orders Medication Instructions Recorded Confirmed Aspirin 81 mg PO DAILY 04/29/18 04/29/18 Carvedilol [Coreg] 12.5 mg PO BID 04/29/18 04/29/18 Lisinopril 20 mg PO DAILY 04/29/18 04/29/18 Methotrexate 20 mg PO MO 04/29/18 04/29/18 Rosuvastatin Calcium 10 mg PO DAILY 04/29/18 04/29/18 Sitagliptin Phosphate [Januvia] 50 mg PO DAILY 04/29/18 04/29/18 Sour Ramires Extract [Tart Ramires 1,000 mg PO DAILY 04/29/18 04/29/18 Extract] Ubidecarenone [Co Q-10] 300 mg PO DAILY 04/29/18 04/29/18 metFORMIN [Glucophage] 500 mg PO BID 04/29/18 04/29/18 Aoobivnetoin-Ozdn-Dqryyqkg,Iso 3.375 gm IV Q6H 7 Days #28 05/02/18 [Zosyn 3.375 gm/50 ml Galaxy] froz.piggy oxyCODONE [Roxicodone] 5 - 10 mg PO Q6H PRN #20 tablet 05/07/18 - Allergies Allergies/Adverse Reactions: Allergies Allergy/AdvReac Type Severity Reaction Status Date / Time No Known Drug Allergies Allergy Verified 05/06/18 23:28 - Social History Does the pt smoke?: No Smoking Status: Never smoker Does the pt drink ETOH?: No Does the pt have substance abuse?: No - Immunizations Immunizations are current?: Yes - POLST Patient has POLST: No PD ED PE NORMAL - Vitals Vital signs reviewed: Yes - General General: Alert and oriented X 3, No acute distress, Well developed/nourished - HEENT HEENT: Moist mucous membranes - Cardiac Cardiac: RRR, No murmur - Respiratory Respiratory: No respiratory distress, Clear bilaterally - Abdomen Abdomen: Soft, Non distended - Back Back: No CVA TTP - Derm Derm: Normal color, Warm and dry PD ED PE EXPANDED - Abdomen Abdomen: Tender to palpation (mild tenderness LLQ>suprapubic region without rebound or guarding) Results - Vitals Vitals: Vital Signs - 24 hr 05/06/18 05/07/18 05/07/18 23:23 01:10 01:53 Temperature 36.8 C Heart Rate 75 78 77 Respiratory 20 14 14 Rate Blood Pressure 105/68 129/72 134/93 H O2 Saturation 97 96 95 05/07/18 05/07/18 05/07/18 02:29 03:30 04:30 Temperature 37.0 C 36.5 C 36.4 C L Heart Rate 72 74 70 Respiratory 16 16 16 Rate Blood Pressure 124/79 122/68 126/68 O2 Saturation 99 100 100 Oxygen O2 Source Room air - Labs Labs: Laboratory Tests 05/07/18 05/07/18 05/07/18 00:35 00:35 00:40 WBC 10.6 RBC 4.07 L Hgb 11.2 L Hct 32.6 L MCV 80.0 MCH 27.4 MCHC 34.2 RDW 15.8 H Plt Count 262 MPV 7.4 Neut # (Auto) Not Reportable Lymph # (Auto) Not Reportable [place] # (Auto) Not Reportable Eos # (Auto) Not Reportable Baso # (Auto) Not Reportable Absolute Nucleated RBC Not Reportable Total Counted 100 Band Neuts % (Manual) 1 Reactive Lymphs % (Man) 4 Abnorm Lymph % (Manual) 0 Nucleated RBC % Not Reportable Neutrophils # (Manual) 7.7 H Lymphocytes # (Manual) 1.9 Monocytes # (Manual) 1.0 Eosinophils # (Manual) 0.0 Basophils # (Manual) 0.0 Differential Comment MANUAL DIFFERENTIAL Platelet Estimate NORMAL (130-450,000) RBC Morph Micro Appear NORMAL APPEARANCE Sodium 136 Potassium 3.9 Chloride 101 Carbon Dioxide 26 Anion Gap 9.0 BUN 12 Creatinine 1.2 Estimated GFR (MDRD) 60 L Glucose 131 H Calcium 8.8 Total Bilirubin 0.4 AST 19 ALT 17 Alkaline Phosphatase 63 Total Protein 7.5 Albumin 3.2 Globulin 4.3 H Albumin/Globulin Ratio 0.7 L Lipase 24 Urine Color YELLOW Urine Clarity CLEAR Urine pH 6.5 Ur Specific [place] 1.020 Urine Protein TRACE Urine Glucose (UA) NEGATIVE Urine Ketones NEGATIVE Urine Occult Blood NEGATIVE Urine Nitrite NEGATIVE Urine Bilirubin NEGATIVE Urine Urobilinogen 0.2 (NORMAL) Ur Leukocyte Esterase NEGATIVE Ur Microscopic Review NOT INDICATED Urine Culture Comments NOT INDICATED - Rads (name of study) CT A/P Radiology: Prelim report reviewed, See rad report PD MEDICAL DECISION MAKING - ED course Complexity details: reviewed old records, reviewed results, re-evaluated patient, considered differential, d/w patient ED course: given 1 mg IV dilaudid and patient reported excellent relief of pain with this; offered but declined more pain medication during remainder of ED stay. Results of [place]'s tests (blood tests, UA, and CT A/P) d/w Dr. Barajas; Dr. Barajas recommends d/c and he will d/w Dr. Garcia on Tuesday. I agree with Dr. Barajas that this patient is safe and appropriate for d/c from ED at this time. Patient expresses appropriate concern that the pain will return, and thus given percocet to take home and oxycodone rx. He is also concerned that the lesion (abscess/fistula) is larger than previous); I expressed understanding of this concern, explained that as long as he returns to the ED if worse in any way (emphasized need to return immediately for fever > 100.3 or pain that is inadequately controlled with the prescribed medication), his other tests tonight, as well as his physical exam, suggest that he can be safely discharged and followed-up in outpatient setting. Patient expresses understanding of, and comfort with, this plan. - Sepsis Event Vital Signs: Vital Signs - 24 hr 05/06/18 05/07/18 05/07/18 23:23 01:10 01:53 Temperature 36.8 C Heart Rate 75 78 77 Respiratory 20 14 14 Rate Blood Pressure 105/68 129/72 134/93 H O2 Saturation 97 96 95 05/07/18 05/07/18 05/07/18 02:29 03:30 04:30 Temperature 37.0 C 36.5 C 36.4 C L Heart Rate 72 74 70 Respiratory 16 16 16 Rate Blood Pressure 124/79 122/68 126/68 O2 Saturation 99 100 100 Oxygen O2 Source Room air Departure - Departure Disposition: 01 Home, Self Care Clinical Impression: Abscess of sigmoid colon due to diverticulitis Condition: Good Instructions: ED Diverticulitis Follow-Up: Zach Garcia MD [Provider Admit Priv/Credential] - (Call Tuesday to arrange for immediate follow-up) Prescriptions: oxyCODONE [Roxicodone] 5 - 10 mg PO Q6H PRN #20 tablet PRN Reason: Pain Discharge Date/Time: 05/07/18 04:55
[2018-05-07] MEDS ORDERED: HYDROmorphone 1 MG/ML CARPUJECT IVP STA (00:40)
[2018-05-07 00:48] LABS: BILIRUBIN,URINE NEGATIVE (NEGATIVE); GLUCOSE, URINE (UA) NEGATIVE (NEGATIVE); KETONES,URINE (UA) NEGATIVE (NEGATIVE); LEUKOCYTE ESTERASE, URINE NEGATIVE (NEGATIVE); NITRITE,URINE NEGATIVE (NEGATIVE); OCCULT BLOOD,URINE NEGATIVE (NEGATIVE); PH,URINE 6.5 PH (5.0-7.5); PROTEIN,URINE TRACE mg/dL (NEGATIVE); UROBILINOGEN,URINE 0.2 (NORMAL) E.U./dL (NORMAL)
[2018-05-07 00:53] LABS: CLARITY,URINE CLEAR (CLEAR)
[2018-05-07 00:58] LABS: BASOPHILS % (AUTO) 1.2 %; EOSINOPHILS % (AUTO) 1.6 %; HGB - HEMOGLOBIN 11.2 g/dL (14.0-18.0); LYMPHOCYTES % (AUTO) 18.6 %; MEAN CORPUSCULAR HEMOGLOBIN 27.4 pg (27.0-31.0); MEAN CORPUSCULAR HGB CONC 34.2 g/dL (32.0-36.0); MEAN PLATELET VOLUME 7.4 fL (7.4-11.4); MONOCYTES % (AUTO) 15.4 %; NEUTROPHILS % (AUTO) 63.2 %; PLT - PLATELET COUNT 262 10^3/uL (130-450); RED BLOOD COUNT 4.07 10^6/uL (4.70-6.10); RED CELL DISTRIBUTION WIDTH 15.8 % (12.0-15.0); WHITE BLOOD COUNT 10.6 x10^3/uL (4.8-10.8)
[2018-05-07 00:59] LABS: CREATININE 1.2 mg/dL (0.6-1.2)
[2018-05-07 01:00] LABS: ABNORMAL LYMPHS % (MANUAL) 0 %; ALBUMIN 3.2 g/dL (3.2-5.5); ALBUMIN/GLOBULIN RATIO 0.7 (1.0-2.2); BILIRUBIN,TOTAL 0.4 mg/dL (0.2-1.0); CALCIUM 8.8 mg/dL (8.5-10.3); TOTAL PROTEIN 7.5 g/dL (6.7-8.2)
[2018-05-07] MEDS ORDERED: IOPAMIDOL-300 100 ML VIAL ONE (01:15)
[2018-05-07 01:21] LABS: BAND NEUTROPHILS % (MANUAL) 1 %; DIFFERENTIAL COMMENT MANUAL DIFFERENTIAL; LYMPHOCYTES # (MANUAL) 1.9 10^3/uL (1.5-3.5); LYMPHOCYTES % (MANUAL) 14 %; NEUTROPHILS # (MANUAL) 7.7 10^3/uL (1.5-6.6); NEUTROPHILS % (MANUAL) 72 %; PLATELET ESTIMATE, MANUAL NORMAL (130-450,000) (NORMAL); RBC MORPHOLOGY (MULTIPLE) NORMAL APPEARANCE (NORMAL)
[2018-05-07] MEDS ORDERED: IOPAMIDOL-300 100 ML VIAL IVP ONE (01:53)
--- NOTE | 2018-05-07 02:01 | CT Report ---
Reason: abd. pain Procedure Date: 05/07/2018 Accession Number: [id number] / [id number] Procedure: CT - Abdomen/Pelvis W/ CPT Code: FULL RESULT: EXAM: CT ABDOMEN AND PELVIS EXAM DATE: 05/07/2018 01:36 AM. CLINICAL HISTORY: Abdominal pain. COMPARISONS: ABDOMEN/PELVIS W/ 04/29/2018 4:58 AM. TECHNIQUE: Routine helical CT imaging was performed through the abdomen and pelvis. IV contrast: 100 ML ISOVUE 300. Enteric contrast: No. Reconstructions: Coronal and sagittal. In accordance with CT protocol optimization, one or more of the following dose reduction techniques were utilized for this exam: automated exposure control, adjustment of mA and/or KV based on patient size, or use of iterative reconstructive technique. FINDINGS: Lung Bases: Unremarkable. Liver: Fatty infiltration. Gallbladder/Bile Ducts: Unremarkable. Spleen: Normal. Pancreas: Normal. Adrenal Glands: Normal. Kidneys: Small right renal cyst. No masses or hydronephrosis. Peritoneal Cavity/Bowel: Sigmoid diverticulitis. Again seen is abscess or fistula extending from the sigmoid colon to the dome of the urinary bladder, measuring 4.7 x 2.8 cm. No bowel obstruction is seen. No lymphadenopathy is noted. Appendix appears normal. Pelvic Organs: Wall thickening at the urinary bladder dome. Visualized pelvic organs are otherwise unremarkable. Vasculature: Mild to moderate atherosclerosis. No aortic aneurysm. Bones: Degenerative changes in the spine, especially L2-L3. Degenerative joint disease in the hips. Other: Small umbilical hernia containing fat. IMPRESSION: 1. Sigmoid diverticulitis with increased abscess or fistula between the sigmoid colon and the dome of the bladder measuring 4.7 x 2.8 cm. 2. Fatty liver. RADIA
[2018-05-07] MEDS ORDERED: oxyCODONE/ACET 5/325 Prepack 4 PO STA (04:48)
[2018-05-07 04:56] VITALS: BP 126/68
== END 2018-05-07 04:55 | disposition home or self-care (01) ==
LOC: ED 23:15
DX: K57.20 Diverticulitis of large intestine with perforation and abscess without bleeding (principal); E11.9 Type 2 diabetes mellitus without complications; Z79.84 Long term (current) use of oral hypoglycemic drugs; Z95.810 Presence of automatic (implantable) cardiac defibrillator
CPT/HCPCS: 36415; 74177; 80053; 81003; 83690; 85025; 96374; 99284; J1170; Q9967; 81001; 87086

== ENCOUNTER 2018-05-29 10:52 | Outpatient (CLI) | payer MEDICARE, OTHER | END 2018-05-29 10:53 | disposition short-term general hospital (02) | LOC: EMS 10:52 | PROVIDERS: ATTEND Surgery | DX: I48.91 Unspecified atrial fibrillation (principal) | CPT/HCPCS: A0170; A0425; A0429 ==

== ENCOUNTER 2019-04-26 08:06 | Outpatient (CLI) | payer MEDICARE, OTHER ==
--- NOTE | 2019-04-26 16:04 | MRI Report ---
Reason: BACK PAIN Procedure Date: 04/26/2019 Accession Number: [id number] / [id number] Procedure: MRI - Lumbar Spine W/O CPT Code: FULL RESULT: EXAM: MRI LUMBAR SPINE WITHOUT CONTRAST EXAM DATE: 04/26/2019 09:27 AM. CLINICAL HISTORY: Back pain. COMPARISON: None. TECHNIQUE: Multiplanar, multisequence T1-weighted and fluid-sensitive sequences of the lumbar spine from T12 to S1 without contrast. Other: None. FINDINGS: Spinal Canal: The conus terminates at T12-L1. Unremarkable appearance of the conus medullaris. Alignment: Upper lumbar dextroscoliosis centered at L2-L3 of about 13 degrees. Bone Marrow: Five oli-tly-dtsfaud lumbar vertebral bodies are assumed. No acute vertebral body height loss. Minimal chronic anterior wedging at T11 and T12. Relatively short pedicles congenitally at L2, L3 and L4 levels. This predisposes to central canal and lateral recess stenosis as well as foraminal narrowing. Disk Levels/Facets: T12-L1: Mild disk degeneration. Minimal facet arthropathy. Shallow circumferential bulge. Minimal marginal spurring. No significant stenosis. L1-L2: Mild disk space narrowing and dehydration. Anterior spurring. Shallow circumferential bulge. Mild facet arthropathy. No significant stenosis. L2-L3: Moderate to severe chronic disk degeneration. This is asymmetric, much worse on the left than on the right. Prominent broad-based osteophytic marginal spurring is present directed laterally to the left and anteriorly. Facet arthropathy is mild. Circumferential bulge is shallow, but there is additional asymmetric left intraforaminal and far lateral protrusion with osteophyte. Mild central stenosis. Moderate left lateral recess stenosis. Moderate to severe left foraminal stenosis. Patent right foramen. L3-L4: Mild to moderate disk degeneration. Moderate facet arthropathy. Ligamentum flavum thickening. Circumferential disk bulge and marginal spurring. Congenitally short pedicles. Posterior midline annular fissure. Moderate to severe stenosis of the central canal and lateral recesses. Mild to moderate bilateral foraminal stenosis. L4-L5: Mild to moderate disk degeneration, asymmetric, much more prominent laterally to the left. Circumferential bulge. Additional prominent asymmetric left intraforaminal and far left lateral disk protrusion with osteophyte. Moderate to marked facet arthropathy with ligamentum flavum thickening. Moderate to severe central canal and lateral recess stenosis. Moderate right and severe left foraminal stenosis. Degenerative synovial cyst extends posteriorly and inferiorly. L5-S1: Mild disk degeneration. Moderate facet arthropathy. 4-5 mm degenerative facet synovial cyst anteriorly on the left. No focal disk herniation or significant stenosis. Musculature: Mild amorphous edema adjacent to the arthritic facet joint on the left at L5-S1, likely reactive changes. Infection is less likely. Muscle strain might also be considered. Other: None. IMPRESSION: 1. Prominent multilevel hypertrophic degenerative lumbar spinal spondylosis, upper lumbar mild dextroscoliosis and relatively short mid lumbar vertebra pedicles which predisposes to stenosis. 2. At L2-L3, moderate left lateral recess stenosis and moderate to severe left foraminal stenosis. 3. Moderate to severe stenosis of the central canal and lateral recesses at L3-L4 and L4-L5. 4. Multilevel facet arthropathy, most severe at L3-L4 and L4-L5. 5. Mild amorphous posterior paraspinal muscle edema on the left at L5-S1 that may be reactive degenerative change or muscle strain. Infection is less likely. Comment: The following findings are so common in adults without low back pain that while we report their presence, they must be interpreted with caution and in the context of the clinical situation. (Reference Suzik et al, Spine 2001) Prevalence of findings in patients without low back pain: Disk degeneration (any evidence): 92% Disk desiccation/T2 signal loss: 83% Disk height loss: 56% Disk bulge: 64% Disk protrusion: 32% Annular tear/high intensity zone: 38% RADIA
== END 2019-04-26 08:07 | disposition home or self-care (01) ==
LOC: DI 08:06
DX: M51.36 Other intervertebral disc degeneration, lumbar region (principal); M51.37 Other intervertebral disc degeneration, lumbosacral region; M47.816 Spondylosis without myelopathy or radiculopathy, lumbar region; M47.817 Spondylosis without myelopathy or radiculopathy, lumbosacral region; M51.35 Other intervertebral disc degeneration, thoracolumbar region; M41.9 Scoliosis, unspecified
CPT/HCPCS: 72148

== ENCOUNTER 2021-01-14 07:06 | Day surgery (SDC) | payer MEDICARE, OTHER ==
[2021-01-14] MEDS ORDERED: LACTATED RINGERS 1,000 ML IV ONE ×2 (07:15→08:13)
[2021-01-14] MEDS ORDERED: MIDAZOLAM 2 MG/2 ML VIAL ONE ×2 (07:53→08:01)
[2021-01-14] MEDS ORDERED: fentaNYL 250 MCG/5 ML VIAL ONE (07:55)
[2021-01-14 08:30] VITALS: BP 120/85
== END 2021-01-14 07:07 | disposition home or self-care (01) ==
LOC: SDS 07:06
PROVIDERS: ATTEND Surgery
DX: Z12.11 Encounter for screening for malignant neoplasm of colon (principal); K64.8 Other hemorrhoids; Z86.010 Personal history of colon polyps; Z90.49 Acquired absence of other specified parts of digestive tract; Z98.0 Intestinal bypass and anastomosis status; Z87.891 Personal history of nicotine dependence
CPT/HCPCS: G0105; J3010; J7120

== ENCOUNTER 2022-04-24 11:26 | Outpatient (CLI) | payer MEDICARE, OTHER ==
--- NOTE | 2022-04-24 11:43 | XRAY Report ---
PROCEDURE: Chest 2 View X-Ray INDICATIONS: HEMOPTYSIS TECHNIQUE: 2 view(s) of the chest. COMPARISON: None. FINDINGS: Surgical changes and devices: Left-sided dual-chamber pacemaker/defibrillator present. Lungs and pleura: Left basilar atelectasis and or infiltrate. Right lung and both pleural spaces are clear. Mediastinum: Heart size enlarged. No vascular congestion. Bones and chest wall: No suspicious bony abnormalities. Soft tissues appear unremarkable. IMPRESSION: Left basilar atelectasis and or infiltrate. Cardiomegaly and pacemaker/defibrillator in place. Reviewed by: Omar Neil MD on 04/24/2022 10:41 AM BERHANE Approved by: Omar Neil MD on 04/24/2022 10:41 AM AKHUEY Station ID: [id number]
== END 2022-04-24 11:27 | disposition home or self-care (01) ==
LOC: DI.S 11:26
PROVIDERS: ATTEND Registered Nurse
DX: R04.2 Hemoptysis (principal); R91.8 Other nonspecific abnormal finding of lung field